=== PATIENT | male | born 1960 | race Caucasian/White ===

== ENCOUNTER 2017-09-17 19:24 | Inpatient (IN) | payer OTHER ==
[~2017-09-17] VITALS: Ht 177.8 cm; Wt 129.4 kg
[2017-09-17] MEDS ORDERED: ALBUTEROL SULF 2.5 MG/0.5ML(0.5%) NEB SOLN HHN STA (19:49)
[2017-09-17] MEDS ORDERED: IPRATROPIUM BROM 0.5 MG/2.5ML INH SOL NEB ONE (20:00)
[2017-09-17] MEDS ORDERED: FUROSEMIDE 20 MG/2 ML VIAL IV ONE (20:00)
[2017-09-17] MEDS ORDERED: methylPREDNISolone SOD SUCC 125 MG/2 ML VL IV ONE (20:00)
[2017-09-17 20:21] LABS: Hematocrit 42.8 % (41.0-53.0); Hemoglobin 14.3 g/dL (13.5-17.5); Mean Corpuscular Hemoglobin 32.4 pg (28.0-32.0); Mean Corpuscular Hgb Conc. 33.5 g/dL (32.0-36.0); Mean Corpuscular Volume 96.8 fL (80.0-100.0); Platelet Count (auto) 233 10^3/uL (140-450); Red Blood Cells 4.43 10^6/uL (4.5-5.90); Red Cell Distribution Width 17.1 % (11.8-14.3); White Blood Cell 5.7 10^3/uL (4.4-10.8)
[2017-09-17 20:31] LABS: Band Neutrophils % (manual) 0
[2017-09-17 20:32] LABS: Basophils % (manual) 0 (0.0-2.0); Blast Cells 0; Metamyelocytes % 0; Myelocytes % 0; Promyelocytes % 0; Reactive Lymphocytes 0
[2017-09-17 20:36] LABS: INR 1.44 (0.9-1.15); Prothrombin Time 15.7 sec (9.37-12.3)
[2017-09-17 20:47] LABS: BUN/Creatinine Ratio 26.6; Bilirubin, Total 0.7 mg/dL (0.2-1.0); Calcium 8.1 mg/dL (8.5-10.1); Potassium 5.1 mmol/L (3.5-5.1); Total Protein 8.3 g/dL (6.4-8.2)
[2017-09-17 21:00] LABS: Urine Bacteria NONE SEEN /hpf (None Seen); Urine Blood Negative /uL (Negative); Urine Mucus FEW (None Seen); Urine Specific Gravity 1.012 (1.001-1.035); Urine WBC <1 /hpf (0 - 3)
[2017-09-17 21:05] LABS: Eosinophils % (manual) 1 (0-7); Lymphocytes % (manual) 33 (10.0-50.0); Monocytes % (manual) 11 (0-12)
[2017-09-17 22:00] VITALS: BP 153/61
[2017-09-17] MEDS ORDERED: SPIR25TA89 PO (23:27)
[2017-09-17] MEDS ORDERED: AML5T PO (23:27)
[2017-09-17] MEDS ORDERED: GABA300C10 PO (23:27)
[2017-09-17] MEDS ORDERED: CARV25TA55 PO (23:27)
[2017-09-17] MEDS ORDERED: PRAV20TA3 PO (23:27)
[2017-09-17] MEDS ORDERED: ASPI81CH43 PO (23:27)
[2017-09-17] MEDS ORDERED: LISI-646 PO (23:27)
[2017-09-17] MEDS ORDERED: AMLO5TAB2 PO (23:27)
[2017-09-17] MEDS ORDERED: TAMS0.4C36 PO (23:27)
[2017-09-17] MEDS ORDERED: PERCOT PO (23:27)
[2017-09-17] MEDS ORDERED: BACL10TA PO (23:27)
[2017-09-17] MEDS ORDERED: FURO40TA4 PO (23:27)
[2017-09-17] MEDS ORDERED: METF-370 PO (23:27)
[2017-09-18] VITALS (30 sets, daily range): BP systolic 88–162; BP diastolic 44–82
[2017-09-18] MEDS ORDERED: ONDANSETRON HCL 4 MG/2 ML VIAL IV PRN (01:30)
[2017-09-18] MEDS ORDERED: ACETAMINOPHEN 325 MG TAB PO PRN (01:30)
[2017-09-18] MEDS ORDERED: MORPHINE SULFATE 4 MG/ML SYR/VIAL IV PRN (01:30)
[2017-09-18] MEDS ORDERED: DEXTROSE (50%) 50ML SYRG IV PRN (01:30)
[2017-09-18] MEDS ORDERED: DOCUSATE SOD 100 MG CAP PO PRN (01:30)
[2017-09-18] MEDS ORDERED: TEMAZEPAM 15 MG CAP PO PRN (01:30)
[2017-09-18] MEDS ORDERED: NITROGLYCERIN 0.4 MG SL TAB SL PRN (01:30)
[2017-09-18] MEDS ORDERED: IOHEXOL 350 MG/ML 100ML IJ ONE (01:46)
[2017-09-18] MEDS ORDERED: SUCCINYLCHOLINE CHLORIDE 20 MG/ML 10ML VIAL IV ONE (04:54)
[2017-09-18] MEDS ORDERED: ETOMIDATE (2MG/ML) 20ML VIAL IV ONE (04:54)
[2017-09-18] MEDS ORDERED: MIDAZOLAM DRIP 50 mg/50mL 50 ML IV ONE (05:23)
[2017-09-18] MEDS: MIDAZOLAM DRIP 50 mg/50mL 50 ML IV SCH ×2 (05:56→20:03)
[2017-09-18] MEDS: FUROSEMIDE 40 MG TAB PO SCH ×2 (06:00→17:54)
[2017-09-18] MEDS ORDERED: FUROSEMIDE 40 MG/4 ML VIAL ONE (06:02)
[2017-09-18] MEDS ORDERED: PROPOFOL 100 ML IV ONE (06:49)
[2017-09-18] MEDS: PROPOFOL 100 ML IV SCH ×3 (07:13→17:36)
[2017-09-18] MEDS: LEVOFLOXACIN 750MG 150 ML IV SCH ×2 (07:21→10:00)
[2017-09-18] MEDS: InsuLIN REG 1unit/0.01ml Soln (100units/ml) SC SCH ×3 (08:40→17:54)
[2017-09-18] MEDS: ACCU-CHEK COMFORT CURVE STRIP VI SCH ×3 (08:40→17:54)
[2017-09-18] MEDS: amLODIPine BESYLATE 5 MG TAB PO SCH ×2 (11:00→21:33)
[2017-09-18] MEDS: FAMOTIDINE 20 MG TAB PO SCH ×2 (11:00→21:46)
[2017-09-18] MEDS: CARVEDILOL 12.5 MG TAB PO SCH (11:00)
[2017-09-18] MEDS: SPIRONOLACTONE 25 MG TAB PO SCH (11:00)
[2017-09-18] MEDS: ENOXAPARIN SOD 40 MG/0.4 ML SYRINGE SC SCH (11:00)
[2017-09-18] MEDS: ASPirin 81 mg TAB PO SCH (11:00)
[2017-09-18] MEDS: LISINOPRIL 20 MG TAB PO SCH (11:00)
[2017-09-18] MEDS: IPRATROPIUM BROM 0.5 MG/2.5ML INH SOL NEB PRN ×3 (14:02→22:10)
[2017-09-18] MEDS: ALBUTEROL SULF 2.5 MG/0.5ML(0.5%) NEB SOLN NEB PRN ×3 (14:02→22:10)
[2017-09-18] MEDS: PRAVASTATIN SODIUM 20 MG TAB PO SCH (21:47)
[2017-09-19] VITALS (48 sets, daily range): BP systolic 84–137; BP diastolic 39–70
[2017-09-19] MEDS: ACCU-CHEK COMFORT CURVE STRIP VI SCH ×5 (00:13→23:41)
[2017-09-19] MEDS: ALBUTEROL SULF 2.5 MG/0.5ML(0.5%) NEB SOLN NEB PRN ×3 (02:04→10:35)
[2017-09-19] MEDS: IPRATROPIUM BROM 0.5 MG/2.5ML INH SOL NEB PRN ×3 (02:04→10:35)
[2017-09-19 05:50] LABS: Basophils # (auto) 0 uL; Basophils % (auto) 0.2 % (0.0-2.0); Eosinophils # (auto) 0 uL; Hematocrit 41.5 % (41.0-53.0); Hemoglobin 13.7 g/dL (13.5-17.5); Lymphocytes % (auto) 11.1 % (10.0-50.0); Mean Corpuscular Hemoglobin 31.7 pg (28.0-32.0); Mean Corpuscular Hgb Conc. 32.9 g/dL (32.0-36.0); Mean Corpuscular Volume 96.2 fL (80.0-100.0); Monocytes # (auto) 0.8 uL; Neutrophils # (auto) 7.4 uL; Neutrophils % (auto) 79.7 % (37.0-80.0); Platelet Count (auto) 204 10^3/uL (140-450); Red Blood Cells 4.31 10^6/uL (4.5-5.90); Red Cell Distribution Width 17.1 % (11.8-14.3); White Blood Cell 9.3 10^3/uL (4.4-10.8)
[2017-09-19 06:00] LABS: Albumin 2.7 g/dL (3.4-5.0); Calcium 8.3 mg/dL (8.5-10.1); Potassium 4.8 mmol/L (3.5-5.1)
[2017-09-19] MEDS: InsuLIN REG 1unit/0.01ml Soln (100units/ml) SC SCH ×5 (06:00→23:41)
[2017-09-19 06:03] LABS: Bilirubin, Total 0.9 mg/dL (0.2-1.0); Total Protein 7.4 g/dL (6.4-8.2)
[2017-09-19] MEDS: MIDAZOLAM DRIP 50 mg/50mL 50 ML IV SCH ×4 (06:03→18:31)
[2017-09-19] MEDS: FUROSEMIDE 40 MG TAB PO SCH (06:06)
[2017-09-19] MEDS: ACETAMINOPHEN 650 mg PER 20 mL UD PO PRN ×2 (07:30→17:52)
[2017-09-19] MEDS: CARVEDILOL 12.5 MG TAB PO SCH (09:48)
[2017-09-19] MEDS: ASPirin 81 mg TAB PO SCH (09:48)
[2017-09-19] MEDS: LEVOFLOXACIN 750MG 150 ML IV SCH (09:48)
[2017-09-19] MEDS: SPIRONOLACTONE 25 MG TAB PO SCH (09:48)
[2017-09-19] MEDS: LISINOPRIL 20 MG TAB PO SCH (09:49)
[2017-09-19] MEDS: FAMOTIDINE 20 MG TAB PO SCH ×2 (09:49→22:07)
[2017-09-19] MEDS: ENOXAPARIN SOD 40 MG/0.4 ML SYRINGE SC SCH (09:49)
[2017-09-19] MEDS: amLODIPine BESYLATE 5 MG TAB PO SCH (09:49)
[2017-09-19] MEDS ORDERED: Diabetisource AC 1 Liter GT SCH (11:00)
[2017-09-19] MEDS: Diabetisource AC 1 Liter GT SCH (14:52)
[2017-09-19] MEDS ORDERED: PIPERACILLIN-TAZOB 3.375GM 50 ML IV SCH (15:00)
[2017-09-19] MEDS ORDERED: AZITHROMYCIN 500MG/ 250ML 250 ML IV SCH (15:00)
[2017-09-19] MEDS: PIPERACILLIN-TAZOB 3.375GM 50 ML IV SCH ×2 (16:35→20:28)
[2017-09-19] MEDS: FUROSEMIDE 40 MG/4 ML VIAL IV SCH (17:52)
[2017-09-19] MEDS ORDERED: IBUPROFEN 100MG/5ML ORAL SUSP 100 MG/5 ML UD GT PRN (18:00)
[2017-09-19] MEDS ORDERED: IBUPROFEN 100MG/5ML ORAL SUSP 100 MG/5 ML UD ONE (18:01)
[2017-09-19] MEDS: ALBUTEROL SULF 2.5 MG/0.5ML(0.5%) NEB SOLN NEB SCH ×2 (18:11→22:27)
[2017-09-19] MEDS: IPRATROPIUM BROM 0.5 MG/2.5ML INH SOL NEB SCH ×2 (18:11→22:27)
[2017-09-19] MEDS: PRAVASTATIN SODIUM 20 MG TAB PO SCH (22:06)
[2017-09-20] VITALS (48 sets, daily range): BP systolic 90–117; BP diastolic 40–73
[2017-09-20] MEDS: ALBUTEROL SULF 2.5 MG/0.5ML(0.5%) NEB SOLN NEB SCH ×6 (02:25→22:44)
[2017-09-20] MEDS: IPRATROPIUM BROM 0.5 MG/2.5ML INH SOL NEB SCH ×6 (02:25→22:44)
[2017-09-20] MEDS: PIPERACILLIN-TAZOB 3.375GM 50 ML IV SCH ×4 (03:00→22:23)
[2017-09-20] MEDS: InsuLIN REG 1unit/0.01ml Soln (100units/ml) SC SCH ×4 (06:00→23:52)
[2017-09-20] MEDS: ACCU-CHEK COMFORT CURVE STRIP VI SCH ×4 (06:00→23:52)
[2017-09-20] MEDS: FUROSEMIDE 40 MG/4 ML VIAL IV SCH ×2 (06:19→18:00)
[2017-09-20] MEDS: SODIUM CHLORIDE 0.9% 1,000 ML IV SCH (06:27)
[2017-09-20] MEDS: PROPOFOL 100 ML IV SCH (09:30)
[2017-09-20] MEDS: CARVEDILOL 12.5 MG TAB PO SCH ×2 (10:00→22:00)
[2017-09-20 10:03] LABS: Basophils # (auto) 0 uL; Basophils % (auto) 0.3 % (0.0-2.0); Eosinophils # (auto) 0 uL; Eosinophils % (auto) 0.2 % (0.0-7.0); Hematocrit 45.7 % (41.0-53.0); Hemoglobin 14.9 g/dL (13.5-17.5); Lymphocytes # (auto) 0.7 uL; Lymphocytes % (auto) 11.3 % (10.0-50.0); Mean Corpuscular Hemoglobin 31.3 pg (28.0-32.0); Mean Corpuscular Hgb Conc. 32.7 g/dL (32.0-36.0); Mean Corpuscular Volume 95.8 fL (80.0-100.0); Monocytes # (auto) 0.8 uL; Monocytes % (auto) 13.5 % (0.0-12.0); Neutrophils # (auto) 4.5 uL; Neutrophils % (auto) 74.7 % (37.0-80.0); Nucleated Red Blood Cells % 0.2 %; Platelet Count (auto) 156 10^3/uL (140-450); Red Blood Cells 4.77 10^6/uL (4.5-5.90); Red Cell Distribution Width 17.1 % (11.8-14.3); White Blood Cell 6.1 10^3/uL (4.4-10.8)
[2017-09-20] MEDS: LEVOFLOXACIN 750MG 150 ML IV SCH (10:05)
[2017-09-20] MEDS: SPIRONOLACTONE 25 MG TAB PO SCH (10:11)
[2017-09-20] MEDS: ENOXAPARIN SOD 40 MG/0.4 ML SYRINGE SC SCH (10:12)
[2017-09-20] MEDS: ASPirin 81 mg TAB PO SCH (10:12)
[2017-09-20] MEDS: FAMOTIDINE 20 MG TAB PO SCH ×2 (10:12→22:23)
[2017-09-20 11:56] LABS: BUN/Creatinine Ratio 20.5; Calcium 8.2 mg/dL (8.5-10.1); Magnesium 2.1 mg/dL (1.6-2.6); Potassium 4.1 mmol/L (3.5-5.1)
[2017-09-20] MEDS ORDERED: VANCOMYCIN 1GM/250ML 250 ML IV ONE (14:30)
[2017-09-20] MEDS ORDERED: VANCOMYCIN PER PHARMACY 0 MG IV SCH (14:30)
[2017-09-20] MEDS: MIDAZOLAM DRIP 50 mg/50mL 50 ML IV SCH (19:58)
[2017-09-20] MEDS: VANCOMYCIN 1,500 MG in D5W 5% 250 ML IV SCH (20:00)
[2017-09-20] MEDS: PRAVASTATIN SODIUM 20 MG TAB PO SCH (22:24)
[2017-09-21] VITALS (106 sets, daily range): BP systolic 84–123; BP diastolic 33–68
[2017-09-21] MEDS: MIDAZOLAM DRIP 50 mg/50mL 50 ML IV SCH ×4 (01:14→14:00)
[2017-09-21] MEDS: VANCOMYCIN 1,500 MG in D5W 5% 250 ML IV SCH ×4 (01:14→23:17)
[2017-09-21] MEDS: PROPOFOL 100 ML IV SCH ×2 (01:14→09:22)
[2017-09-21] MEDS: IPRATROPIUM BROM 0.5 MG/2.5ML INH SOL NEB SCH ×6 (02:50→22:09)
[2017-09-21] MEDS: ALBUTEROL SULF 2.5 MG/0.5ML(0.5%) NEB SOLN NEB SCH ×6 (02:50→22:09)
[2017-09-21] MEDS: PIPERACILLIN-TAZOB 3.375GM 50 ML IV SCH ×4 (03:36→20:57)
[2017-09-21 03:47] LABS: Basophils # (auto) 0 uL; Basophils % (auto) 0.4 % (0.0-2.0); Eosinophils # (auto) 0 uL; Eosinophils % (auto) 0.5 % (0.0-7.0); Hematocrit 44.7 % (41.0-53.0); Lymphocytes # (auto) 1.2 uL; Lymphocytes % (auto) 17.5 % (10.0-50.0); Mean Corpuscular Hemoglobin 31.7 pg (28.0-32.0); Mean Corpuscular Hgb Conc. 33.5 g/dL (32.0-36.0); Mean Corpuscular Volume 94.6 fL (80.0-100.0); Monocytes % (auto) 15.1 % (0.0-12.0); Neutrophils # (auto) 4.6 uL; Neutrophils % (auto) 66.5 % (37.0-80.0); Nucleated Red Blood Cells % 0.1 %; Platelet Count (auto) 149 10^3/uL (140-450); Red Blood Cells 4.72 10^6/uL (4.5-5.90); White Blood Cell 6.9 10^3/uL (4.4-10.8)
[2017-09-21 04:05] LABS: Albumin 2.7 g/dL (3.4-5.0); BUN/Creatinine Ratio 16.7; Calcium 8.3 mg/dL (8.5-10.1); Potassium 3.9 mmol/L (3.5-5.1)
[2017-09-21 04:08] LABS: Bilirubin, Total 1.5 mg/dL (0.2-1.0); Total Protein 7.6 g/dL (6.4-8.2)
[2017-09-21] MEDS: InsuLIN REG 1unit/0.01ml Soln (100units/ml) SC SCH ×3 (06:00→18:30)
[2017-09-21] MEDS: FUROSEMIDE 40 MG/4 ML VIAL IV SCH (06:24)
[2017-09-21] MEDS: ACCU-CHEK COMFORT CURVE STRIP VI SCH ×3 (06:25→18:15)
[2017-09-21] MEDS: SODIUM CHLORIDE 0.9% 1,000 ML IV SCH (06:36)
[2017-09-21] MEDS: CARVEDILOL 12.5 MG TAB PO SCH ×2 (10:37→21:54)
[2017-09-21] MEDS: SPIRONOLACTONE 25 MG TAB PO SCH (10:38)
[2017-09-21] MEDS: LEVOFLOXACIN 750MG 150 ML IV SCH (10:39)
[2017-09-21] MEDS: FAMOTIDINE 20 MG TAB PO SCH ×2 (10:39→21:59)
[2017-09-21] MEDS: ASPirin 81 mg TAB PO SCH (12:35)
[2017-09-21] MEDS: ENOXAPARIN SOD 40 MG/0.4 ML SYRINGE SC SCH (12:35)
[2017-09-21] MEDS: Diabetisource AC 1 Liter GT SCH (14:52)
[2017-09-21] MEDS: PRAVASTATIN SODIUM 20 MG TAB PO SCH (21:59)
[2017-09-22] VITALS (81 sets, daily range): BP systolic 85–130; BP diastolic 37–66
[2017-09-22] MEDS: ACCU-CHEK COMFORT CURVE STRIP VI SCH ×5 (00:15→23:57)
[2017-09-22] MEDS: MIDAZOLAM DRIP 50 mg/50mL 50 ML IV SCH (00:19)
[2017-09-22] MEDS: ALBUTEROL SULF 2.5 MG/0.5ML(0.5%) NEB SOLN NEB SCH ×6 (02:28→22:09)
[2017-09-22] MEDS: IPRATROPIUM BROM 0.5 MG/2.5ML INH SOL NEB SCH ×6 (02:28→22:08)
[2017-09-22 03:45] LABS: Basophils # (auto) 0 uL; Basophils % (auto) 0.4 % (0.0-2.0); Eosinophils # (auto) 0.1 uL; Eosinophils % (auto) 1.8 % (0.0-7.0); Hematocrit 47.5 % (41.0-53.0); Hemoglobin 15.8 g/dL (13.5-17.5); Lymphocytes # (auto) 1.6 uL; Mean Corpuscular Hemoglobin 31.6 pg (28.0-32.0); Mean Corpuscular Hgb Conc. 33.2 g/dL (32.0-36.0); Monocytes # (auto) 1.2 uL; Monocytes % (auto) 16.1 % (0.0-12.0); Neutrophils # (auto) 4.5 uL; Neutrophils % (auto) 60.7 % (37.0-80.0); Platelet Count (auto) 161 10^3/uL (140-450); Red Cell Distribution Width 16.8 % (11.8-14.3); White Blood Cell 7.4 10^3/uL (4.4-10.8)
[2017-09-22] MEDS: PIPERACILLIN-TAZOB 3.375GM 50 ML IV SCH ×4 (04:00→20:41)
[2017-09-22 04:03] LABS: Albumin 2.8 g/dL (3.4-5.0); Calcium 8.8 mg/dL (8.5-10.1); Potassium 3.8 mmol/L (3.5-5.1)
[2017-09-22 04:05] LABS: BUN/Creatinine Ratio 19.5
[2017-09-22 04:10] LABS: Bilirubin, Total 1.8 mg/dL (0.2-1.0); Total Protein 8.3 g/dL (6.4-8.2)
[2017-09-22] MEDS: FUROSEMIDE 40 MG/4 ML VIAL IV SCH ×2 (06:00→18:00)
[2017-09-22] MEDS: InsuLIN REG 1unit/0.01ml Soln (100units/ml) SC SCH ×4 (06:00→18:31)
[2017-09-22] MEDS: VANCOMYCIN 1,500 MG in D5W 5% 250 ML IV SCH (07:23)
[2017-09-22] MEDS: CARVEDILOL 12.5 MG TAB PO SCH ×2 (10:00→21:46)
[2017-09-22] MEDS: ENOXAPARIN SOD 40 MG/0.4 ML SYRINGE SC SCH (10:34)
[2017-09-22] MEDS: ASPirin 81 mg TAB PO SCH (10:34)
[2017-09-22] MEDS: SPIRONOLACTONE 25 MG TAB PO SCH (10:34)
[2017-09-22] MEDS: LEVOFLOXACIN 750MG 150 ML IV SCH (10:34)
[2017-09-22] MEDS: FAMOTIDINE 20 MG TAB PO SCH ×2 (10:34→21:46)
[2017-09-22] MEDS: Diabetisource AC 1 Liter GT SCH (16:50)
[2017-09-22] MEDS: VANCOMYCIN 1GM/250ML 250 ML IV SCH ×2 (16:56→23:57)
[2017-09-22] MEDS: PRAVASTATIN SODIUM 20 MG TAB PO SCH (21:46)
[2017-09-23] VITALS (104 sets, daily range): BP systolic 78–136; BP diastolic 33–70
[2017-09-23] MEDS: InsuLIN REG 1unit/0.01ml Soln (100units/ml) SC SCH ×5 (00:13→23:40)
[2017-09-23] MEDS: MIDAZOLAM DRIP 50 mg/50mL 50 ML IV SCH ×2 (01:08→14:30)
[2017-09-23] MEDS: ALBUTEROL SULF 2.5 MG/0.5ML(0.5%) NEB SOLN NEB SCH ×6 (02:07→22:15)
[2017-09-23] MEDS: IPRATROPIUM BROM 0.5 MG/2.5ML INH SOL NEB SCH ×6 (02:07→22:15)
[2017-09-23] MEDS: PIPERACILLIN-TAZOB 3.375GM 50 ML IV SCH ×4 (03:11→20:33)
[2017-09-23 04:24] LABS: Basophils # (auto) 0.1 uL; Basophils % (auto) 0.6 % (0.0-2.0); Eosinophils # (auto) 0.3 uL; Eosinophils % (auto) 2.9 % (0.0-7.0); Hematocrit 47.5 % (41.0-53.0); Hemoglobin 15.6 g/dL (13.5-17.5); Lymphocytes # (auto) 1.7 uL; Lymphocytes % (auto) 16.7 % (10.0-50.0); Mean Corpuscular Hemoglobin 31.4 pg (28.0-32.0); Mean Corpuscular Hgb Conc. 32.9 g/dL (32.0-36.0); Mean Corpuscular Volume 95.5 fL (80.0-100.0); Monocytes # (auto) 1.4 uL; Neutrophils # (auto) 6.5 uL; Neutrophils % (auto) 65.8 % (37.0-80.0); Platelet Count (auto) 196 10^3/uL (140-450); Red Blood Cells 4.97 10^6/uL (4.5-5.90); Red Cell Distribution Width 17.1 % (11.8-14.3); White Blood Cell 9.9 10^3/uL (4.4-10.8)
[2017-09-23 04:41] LABS: Albumin 2.6 g/dL (3.4-5.0); Bilirubin, Total 1.5 mg/dL (0.2-1.0); Calcium 8.6 mg/dL (8.5-10.1); Potassium 3.7 mmol/L (3.5-5.1); Total Protein 8.3 g/dL (6.4-8.2)
[2017-09-23] MEDS: FUROSEMIDE 40 MG/4 ML VIAL IV SCH ×2 (05:38→17:55)
[2017-09-23] MEDS: ACCU-CHEK COMFORT CURVE STRIP VI SCH ×5 (05:39→23:27)
[2017-09-23] MEDS: PROPOFOL 100 ML IV SCH (06:38)
[2017-09-23] MEDS: VANCOMYCIN 1GM/250ML 250 ML IV SCH ×2 (09:00→23:28)
[2017-09-23] MEDS: ENOXAPARIN SOD 40 MG/0.4 ML SYRINGE SC SCH (10:00)
[2017-09-23] MEDS: CARVEDILOL 12.5 MG TAB PO SCH ×2 (10:00→21:43)
[2017-09-23] MEDS: SPIRONOLACTONE 25 MG TAB PO SCH (10:00)
[2017-09-23] MEDS: LEVOFLOXACIN 750MG 150 ML IV SCH (10:00)
[2017-09-23] MEDS: FAMOTIDINE 20 MG TAB PO SCH ×2 (10:00→21:43)
[2017-09-23] MEDS: ASPirin 81 mg TAB PO SCH (10:00)
[2017-09-23] MEDS ORDERED: InsuLIN REG 1unit/0.01ml Soln (100units/ml) ONE (12:00)
[2017-09-23] MEDS: PRAVASTATIN SODIUM 20 MG TAB PO SCH (21:43)
[2017-09-24] VITALS (107 sets, daily range): BP systolic 80–127; BP diastolic 27–76
[2017-09-24] MEDS: Diabetisource AC 1 Liter GT SCH (00:16)
[2017-09-24] MEDS: ALBUTEROL SULF 2.5 MG/0.5ML(0.5%) NEB SOLN NEB SCH ×7 (02:00→22:33)
[2017-09-24] MEDS: IPRATROPIUM BROM 0.5 MG/2.5ML INH SOL NEB SCH ×6 (02:19→22:33)
[2017-09-24] MEDS: PIPERACILLIN-TAZOB 3.375GM 50 ML IV SCH ×4 (03:00→22:00)
[2017-09-24 04:55] LABS: Basophils # (auto) 0.1 uL; Basophils % (auto) 0.6 % (0.0-2.0); Eosinophils # (auto) 0.4 uL; Eosinophils % (auto) 4.2 % (0.0-7.0); Hematocrit 45.7 % (41.0-53.0); Hemoglobin 15.5 g/dL (13.5-17.5); Lymphocytes # (auto) 2.3 uL; Lymphocytes % (auto) 22.6 % (10.0-50.0); Mean Corpuscular Hemoglobin 32.2 pg (28.0-32.0); Mean Corpuscular Volume 94.6 fL (80.0-100.0); Monocytes # (auto) 1.5 uL; Monocytes % (auto) 14.6 % (0.0-12.0); Neutrophils # (auto) 5.8 uL; Nucleated Red Blood Cells % 0.1 %; Platelet Count (auto) 233 10^3/uL (140-450); Red Blood Cells 4.83 10^6/uL (4.5-5.90); Red Cell Distribution Width 16.7 % (11.8-14.3)
[2017-09-24] MEDS: MIDAZOLAM DRIP 50 mg/50mL 50 ML IV SCH ×2 (04:59→15:18)
[2017-09-24 05:50] LABS: Albumin 2.6 g/dL (3.4-5.0); BUN/Creatinine Ratio 24.3; Bilirubin, Total 1.6 mg/dL (0.2-1.0); Calcium 8.7 mg/dL (8.5-10.1); Potassium 3.7 mmol/L (3.5-5.1); Total Protein 8.4 g/dL (6.4-8.2)
[2017-09-24] MEDS: FUROSEMIDE 40 MG/4 ML VIAL IV SCH ×2 (05:56→18:17)
[2017-09-24] MEDS: InsuLIN REG 1unit/0.01ml Soln (100units/ml) SC SCH ×3 (05:57→18:30)
[2017-09-24] MEDS: PROPOFOL 100 ML IV SCH (05:57)
[2017-09-24] MEDS: ACCU-CHEK COMFORT CURVE STRIP VI SCH ×3 (05:58→18:25)
[2017-09-24] MEDS: CARVEDILOL 12.5 MG TAB PO SCH ×2 (10:00→21:46)
[2017-09-24] MEDS: FAMOTIDINE 20 MG TAB PO SCH ×2 (10:19→21:47)
[2017-09-24] MEDS: LEVOFLOXACIN 750MG 150 ML IV SCH (10:19)
[2017-09-24] MEDS: ASPirin 81 mg TAB PO SCH (10:19)
[2017-09-24] MEDS: SPIRONOLACTONE 25 MG TAB PO SCH (10:19)
[2017-09-24] MEDS: ENOXAPARIN SOD 40 MG/0.4 ML SYRINGE SC SCH (10:19)
[2017-09-24] MEDS: VANCOMYCIN 1GM/250ML 250 ML IV SCH ×2 (11:00→21:15)
[2017-09-24] MEDS: HYDROcodone-ACET 5/325MG TAB PO PRN (21:15)
[2017-09-24] MEDS: PRAVASTATIN SODIUM 20 MG TAB PO SCH (21:47)
[2017-09-25] VITALS (59 sets, daily range): BP systolic 61–134; BP diastolic 23–79
[2017-09-25] MEDS: ALBUTEROL SULF 2.5 MG/0.5ML(0.5%) NEB SOLN NEB SCH ×6 (02:17→22:10)
[2017-09-25] MEDS: IPRATROPIUM BROM 0.5 MG/2.5ML INH SOL NEB SCH ×6 (02:17→22:10)
[2017-09-25] MEDS: PIPERACILLIN-TAZOB 3.375GM 50 ML IV SCH ×4 (03:00→21:01)
[2017-09-25] MEDS: VANCOMYCIN 1GM/250ML 250 ML IV SCH (06:00)
[2017-09-25 06:20] LABS: Basophils # (auto) 0.2 uL; Basophils % (auto) 2.3 % (0.0-2.0); Eosinophils # (auto) 0.5 uL; Eosinophils % (auto) 5.7 % (0.0-7.0); Hematocrit 46.3 % (41.0-53.0); Hemoglobin 15.6 g/dL (13.5-17.5); Lymphocytes # (auto) 1.8 uL; Lymphocytes % (auto) 22.6 % (10.0-50.0); Mean Corpuscular Hgb Conc. 33.6 g/dL (32.0-36.0); Mean Corpuscular Volume 95.3 fL (80.0-100.0); Monocytes # (auto) 1.4 uL; Monocytes % (auto) 17.8 % (0.0-12.0); Neutrophils # (auto) 4.2 uL; Neutrophils % (auto) 51.6 % (37.0-80.0); Nucleated Red Blood Cells % 0.3 %; Platelet Count (auto) 262 10^3/uL (140-450); Red Blood Cells 4.86 10^6/uL (4.5-5.90); Red Cell Distribution Width 16.7 % (11.8-14.3); White Blood Cell 8.1 10^3/uL (4.4-10.8)
[2017-09-25 06:36] LABS: Albumin 2.6 g/dL (3.4-5.0); BUN/Creatinine Ratio 25.7; Calcium 8.9 mg/dL (8.5-10.1); Potassium 3.8 mmol/L (3.5-5.1)
[2017-09-25 06:38] LABS: Bilirubin, Total 1.4 mg/dL (0.2-1.0); Total Protein 8.4 g/dL (6.4-8.2)
[2017-09-25] MEDS: InsuLIN REG 1unit/0.01ml Soln (100units/ml) SC SCH ×4 (06:40→18:00)
[2017-09-25] MEDS: ACCU-CHEK COMFORT CURVE STRIP VI SCH ×4 (06:40→18:41)
[2017-09-25] MEDS: FUROSEMIDE 40 MG/4 ML VIAL IV SCH ×2 (06:40→18:15)
[2017-09-25] MEDS: PROPOFOL 100 ML IV SCH ×2 (07:03→22:05)
[2017-09-25] MEDS: MIDAZOLAM DRIP 50 mg/50mL 50 ML IV SCH (08:47)
[2017-09-25] MEDS: LEVOFLOXACIN 750MG 150 ML IV SCH (09:55)
[2017-09-25] MEDS: ASPirin 81 mg TAB PO SCH (09:55)
[2017-09-25] MEDS: SPIRONOLACTONE 25 MG TAB PO SCH (09:55)
[2017-09-25] MEDS: ENOXAPARIN SOD 40 MG/0.4 ML SYRINGE SC SCH (09:55)
[2017-09-25] MEDS: CARVEDILOL 12.5 MG TAB PO SCH ×2 (09:55→22:30)
[2017-09-25] MEDS: FAMOTIDINE 20 MG TAB PO SCH ×2 (09:55→22:03)
[2017-09-25] MEDS: LINEZOLID 600MG/300ML 300 ML IV SCH ×2 (11:49→22:05)
[2017-09-25] MEDS: PRAVASTATIN SODIUM 20 MG TAB PO SCH (22:04)
[2017-09-26] VITALS (58 sets, daily range): BP systolic 92–147; BP diastolic 35–92
[2017-09-26] MEDS: PROPOFOL 100 ML IV SCH ×3 (00:08→06:00)
[2017-09-26] MEDS: IPRATROPIUM BROM 0.5 MG/2.5ML INH SOL NEB SCH ×6 (02:28→22:19)
[2017-09-26] MEDS: ALBUTEROL SULF 2.5 MG/0.5ML(0.5%) NEB SOLN NEB SCH ×6 (02:28→22:19)
[2017-09-26] MEDS: PIPERACILLIN-TAZOB 3.375GM 50 ML IV SCH ×4 (03:03→21:00)
[2017-09-26] MEDS: MIDAZOLAM DRIP 50 mg/50mL 50 ML IV SCH (05:56)
[2017-09-26] MEDS: InsuLIN REG 1unit/0.01ml Soln (100units/ml) SC SCH ×4 (06:00→18:00)
[2017-09-26 06:11] LABS: Calcium 9.3 mg/dL (8.5-10.1); Potassium 3.7 mmol/L (3.5-5.1)
[2017-09-26 06:14] LABS: BUN/Creatinine Ratio 24.1
[2017-09-26] MEDS: FUROSEMIDE 40 MG/4 ML VIAL IV SCH ×2 (06:14→18:11)
[2017-09-26] MEDS: ACCU-CHEK COMFORT CURVE STRIP VI SCH ×4 (06:14→18:10)
[2017-09-26] MEDS: LEVOFLOXACIN 750MG 150 ML IV SCH (09:57)
[2017-09-26] MEDS: LINEZOLID 600MG/300ML 300 ML IV SCH ×2 (09:57→22:00)
[2017-09-26] MEDS: ASPirin 81 mg TAB PO SCH (09:58)
[2017-09-26] MEDS: CARVEDILOL 12.5 MG TAB PO SCH ×2 (09:58→23:02)
[2017-09-26] MEDS: FAMOTIDINE 20 MG TAB PO SCH ×2 (09:58→23:03)
[2017-09-26] MEDS: SPIRONOLACTONE 25 MG TAB PO SCH (09:58)
[2017-09-26] MEDS: ENOXAPARIN SOD 40 MG/0.4 ML SYRINGE SC SCH (09:58)
[2017-09-26] MEDS ORDERED: MIDAZOLAM HCL 1MG/1ML-2 ML VIAL IV PRN (12:00)
[2017-09-26] MEDS: PRAVASTATIN SODIUM 20 MG TAB PO SCH (23:03)
[2017-09-27] VITALS (25 sets, daily range): BP systolic 101–143; BP diastolic 48–71
[2017-09-27] MEDS: ACCU-CHEK COMFORT CURVE STRIP VI SCH ×4 (01:00→18:00)
[2017-09-27] MEDS: IPRATROPIUM BROM 0.5 MG/2.5ML INH SOL NEB SCH ×6 (02:22→22:47)
[2017-09-27] MEDS: ALBUTEROL SULF 2.5 MG/0.5ML(0.5%) NEB SOLN NEB SCH ×6 (02:22→22:47)
[2017-09-27] MEDS: PIPERACILLIN-TAZOB 3.375GM 50 ML IV SCH ×4 (03:00→21:10)
[2017-09-27] MEDS: FUROSEMIDE 40 MG/4 ML VIAL IV SCH ×2 (06:00→18:43)
[2017-09-27] MEDS: InsuLIN REG 1unit/0.01ml Soln (100units/ml) SC SCH ×4 (06:00→18:00)
[2017-09-27 06:06] LABS: Hematocrit 47.6 % (41.0-53.0); Hemoglobin 15.8 g/dL (13.5-17.5); Mean Corpuscular Hemoglobin 31.4 pg (28.0-32.0); Mean Corpuscular Hgb Conc. 33.1 g/dL (32.0-36.0); Mean Corpuscular Volume 94.8 fL (80.0-100.0); Platelet Count (auto) 346 10^3/uL (140-450); Red Blood Cells 5.03 10^6/uL (4.5-5.90); Red Cell Distribution Width 16.3 % (11.8-14.3)
[2017-09-27 06:09] LABS: Band Neutrophils % (manual) 0
[2017-09-27 06:10] LABS: Basophils % (manual) 0 (0.0-2.0); Blast Cells 0; Metamyelocytes % 0; Myelocytes % 0; Promyelocytes % 0; Reactive Lymphocytes 0
[2017-09-27 06:16] LABS: Albumin 2.9 g/dL (3.4-5.0); BUN/Creatinine Ratio 22.9; Calcium 9.4 mg/dL (8.5-10.1); Potassium 3.5 mmol/L (3.5-5.1)
[2017-09-27 06:19] LABS: Bilirubin, Total 2.1 mg/dL (0.2-1.0); Total Protein 8.8 g/dL (6.4-8.2)
[2017-09-27] MEDS: HYDROcodone-ACET 5/325MG TAB PO PRN (06:48)
[2017-09-27 06:56] LABS: Eosinophils % (manual) 1 (0-7); Lymphocytes % (manual) 17 (10.0-50.0); Monocytes % (manual) 17 (0-12)
[2017-09-27] MEDS: ASPirin 81 mg TAB PO SCH (09:09)
[2017-09-27] MEDS: CARVEDILOL 12.5 MG TAB PO SCH ×2 (09:09→22:29)
[2017-09-27] MEDS: SPIRONOLACTONE 25 MG TAB PO SCH (09:09)
[2017-09-27] MEDS: LINEZOLID 600MG/300ML 300 ML IV SCH ×2 (09:10→22:29)
[2017-09-27] MEDS: LEVOFLOXACIN 750MG 150 ML IV SCH (09:10)
[2017-09-27] MEDS: FAMOTIDINE 20 MG TAB PO SCH ×2 (09:10→22:29)
[2017-09-27] MEDS: ENOXAPARIN SOD 40 MG/0.4 ML SYRINGE SC SCH (09:10)
[2017-09-27] MEDS: PRAVASTATIN SODIUM 20 MG TAB PO SCH (22:29)
[2017-09-28] VITALS (23 sets, daily range): BP systolic 97–154; BP diastolic 52–73
[2017-09-28] MEDS: ACCU-CHEK COMFORT CURVE STRIP VI SCH ×4 (00:07→17:31)
[2017-09-28] MEDS: InsuLIN REG 1unit/0.01ml Soln (100units/ml) SC SCH ×4 (00:07→17:31)
[2017-09-28] MEDS: ALBUTEROL SULF 2.5 MG/0.5ML(0.5%) NEB SOLN NEB SCH ×6 (02:10→22:00)
[2017-09-28] MEDS: IPRATROPIUM BROM 0.5 MG/2.5ML INH SOL NEB SCH ×6 (02:10→22:00)
[2017-09-28] MEDS: PIPERACILLIN-TAZOB 3.375GM 50 ML IV SCH ×4 (03:22→21:00)
[2017-09-28 04:15] LABS: Basophils # (auto) 0.1 uL; Basophils % (auto) 0.8 % (0.0-2.0); Eosinophils # (auto) 0.4 uL; Eosinophils % (auto) 3.8 % (0.0-7.0); Hemoglobin 16.3 g/dL (13.5-17.5); Lymphocytes # (auto) 1.9 uL; Lymphocytes % (auto) 19.3 % (10.0-50.0); Mean Corpuscular Hemoglobin 31.5 pg (28.0-32.0); Mean Corpuscular Hgb Conc. 33.3 g/dL (32.0-36.0); Mean Corpuscular Volume 94.5 fL (80.0-100.0); Monocytes # (auto) 1.7 uL; Neutrophils # (auto) 5.8 uL; Neutrophils % (auto) 59.1 % (37.0-80.0); Nucleated Red Blood Cells % 0.1 %; Platelet Count (auto) 376 10^3/uL (140-450); Red Blood Cells 5.19 10^6/uL (4.5-5.90); Red Cell Distribution Width 15.8 % (11.8-14.3); White Blood Cell 9.9 10^3/uL (4.4-10.8)
[2017-09-28 04:37] LABS: Albumin 2.9 g/dL (3.4-5.0); BUN/Creatinine Ratio 19.5; Bilirubin, Total 2.3 mg/dL (0.2-1.0); Calcium 9.4 mg/dL (8.5-10.1); Potassium 3.3 mmol/L (3.5-5.1); Total Protein 9.2 g/dL (6.4-8.2)
[2017-09-28] MEDS ORDERED: POTASSIUM CHL 20 Meq TABLET PO ONE ×2 (05:57→06:00)
[2017-09-28] MEDS: HYDROcodone-ACET 5/325MG TAB PO PRN (06:00)
[2017-09-28] MEDS ORDERED: NICOTINE 14 MG/24HR TOPICAL PATCH TD ONE ×2 (06:00)
[2017-09-28] MEDS: FUROSEMIDE 40 MG/4 ML VIAL IV SCH ×2 (06:16→18:04)
[2017-09-28] MEDS: SPIRONOLACTONE 25 MG TAB PO SCH (09:55)
[2017-09-28] MEDS: CARVEDILOL 12.5 MG TAB PO SCH ×3 (09:55→21:58)
[2017-09-28] MEDS: ASPirin 81 mg TAB PO SCH (09:55)
[2017-09-28] MEDS: LEVOFLOXACIN 750MG 150 ML IV SCH (09:55)
[2017-09-28] MEDS: FAMOTIDINE 20 MG TAB PO SCH ×2 (09:56→21:58)
[2017-09-28] MEDS: ENOXAPARIN SOD 40 MG/0.4 ML SYRINGE SC SCH (09:56)
[2017-09-28] MEDS: LINEZOLID 600MG/300ML 300 ML IV SCH ×2 (11:31→21:57)
[2017-09-28] MEDS: PRAVASTATIN SODIUM 20 MG TAB PO SCH (21:58)
[2017-09-29] VITALS (13 sets, daily range): BP systolic 109–143; BP diastolic 50–76
[2017-09-29] MEDS: IPRATROPIUM BROM 0.5 MG/2.5ML INH SOL NEB SCH ×6 (02:12→22:10)
[2017-09-29] MEDS: ALBUTEROL SULF 2.5 MG/0.5ML(0.5%) NEB SOLN NEB SCH ×6 (02:12→22:10)
[2017-09-29] MEDS: PIPERACILLIN-TAZOB 3.375GM 50 ML IV SCH ×4 (03:00→22:32)
[2017-09-29 03:37] LABS: Basophils # (auto) 0.1 uL; Basophils % (auto) 1.2 % (0.0-2.0); Eosinophils # (auto) 0.3 uL; Eosinophils % (auto) 2.4 % (0.0-7.0); Hematocrit 50.1 % (41.0-53.0); Hemoglobin 16.6 g/dL (13.5-17.5); Lymphocytes # (auto) 2.1 uL; Lymphocytes % (auto) 18.3 % (10.0-50.0); Mean Corpuscular Hemoglobin 31.2 pg (28.0-32.0); Mean Corpuscular Volume 94.5 fL (80.0-100.0); Monocytes # (auto) 1.6 uL; Monocytes % (auto) 13.9 % (0.0-12.0); Neutrophils # (auto) 7.4 uL; Neutrophils % (auto) 64.2 % (37.0-80.0); Nucleated Red Blood Cells % 0.1 %; Platelet Count (auto) 404 10^3/uL (140-450); Red Cell Distribution Width 16.3 % (11.8-14.3); White Blood Cell 11.6 10^3/uL (4.4-10.8)
[2017-09-29 04:05] LABS: Albumin 2.9 g/dL (3.4-5.0); BUN/Creatinine Ratio 20.5; Calcium 9.4 mg/dL (8.5-10.1); Potassium 3.4 mmol/L (3.5-5.1)
[2017-09-29 04:08] LABS: Total Protein 8.8 g/dL (6.4-8.2)
[2017-09-29] MEDS: ACCU-CHEK COMFORT CURVE STRIP VI SCH ×5 (06:19→22:59)
[2017-09-29] MEDS: FUROSEMIDE 40 MG/4 ML VIAL IV SCH ×2 (06:19→17:47)
[2017-09-29] MEDS: InsuLIN REG 1unit/0.01ml Soln (100units/ml) SC SCH ×5 (06:19→22:43)
[2017-09-29] MEDS ORDERED: POTASSIUM CHL 10% (20 MEQ/15ML) 15ml ORAL SOLN PO ONE (09:15)
[2017-09-29] MEDS: LEVOFLOXACIN 750MG 150 ML IV SCH (09:50)
[2017-09-29] MEDS: NICOTINE 21MG/24 HR TOPICAL PATCH TD SCH (09:51)
[2017-09-29] MEDS: ENOXAPARIN SOD 40 MG/0.4 ML SYRINGE SC SCH (09:51)
[2017-09-29] MEDS: FAMOTIDINE 20 MG TAB PO SCH ×2 (09:51→22:33)
[2017-09-29] MEDS: CARVEDILOL 12.5 MG TAB PO SCH ×2 (09:51→22:33)
[2017-09-29] MEDS: SPIRONOLACTONE 25 MG TAB PO SCH (09:51)
[2017-09-29] MEDS: ASPirin 81 mg TAB PO SCH (09:52)
[2017-09-29 11:19] LABS: Urine WBC None Seen /hpf (0 - 3)
[2017-09-29 11:47] LABS: Urine Bacteria NONE SEEN /hpf (None Seen); Urine Blood 3+ /uL (Negative); Urine Specific Gravity 1.015 (1.001-1.035)
[2017-09-29] MEDS: LINEZOLID 600MG/300ML 300 ML IV SCH ×2 (12:23→22:59)
[2017-09-29] MEDS: PRAVASTATIN SODIUM 20 MG TAB PO SCH (22:34)
[2017-09-30] VITALS (7 sets, daily range): BP systolic 104–122; BP diastolic 60–71
[2017-09-30] MEDS: IPRATROPIUM BROM 0.5 MG/2.5ML INH SOL NEB SCH ×6 (02:10→22:00)
[2017-09-30] MEDS: ALBUTEROL SULF 2.5 MG/0.5ML(0.5%) NEB SOLN NEB SCH ×6 (02:10→22:00)
[2017-09-30] MEDS: ACCU-CHEK COMFORT CURVE STRIP VI SCH ×4 (06:00→23:41)
[2017-09-30 06:43] LABS: Basophils # (auto) 0.1 uL; Basophils % (auto) 0.5 % (0.0-2.0); Eosinophils # (auto) 0.3 uL; Eosinophils % (auto) 2.2 % (0.0-7.0); Hematocrit 49.9 % (41.0-53.0); Hemoglobin 16.4 g/dL (13.5-17.5); Lymphocytes # (auto) 1.7 uL; Lymphocytes % (auto) 12.2 % (10.0-50.0); Mean Corpuscular Hemoglobin 31.3 pg (28.0-32.0); Mean Corpuscular Hgb Conc. 32.9 g/dL (32.0-36.0); Mean Corpuscular Volume 95.1 fL (80.0-100.0); Monocytes # (auto) 1.2 uL; Monocytes % (auto) 8.7 % (0.0-12.0); Neutrophils # (auto) 10.8 uL; Neutrophils % (auto) 76.4 % (37.0-80.0); Nucleated Red Blood Cells % 0.1 %; Platelet Count (auto) 423 10^3/uL (140-450); Red Blood Cells 5.24 10^6/uL (4.5-5.90); Red Cell Distribution Width 16.1 % (11.8-14.3); White Blood Cell 14.1 10^3/uL (4.4-10.8)
[2017-09-30 06:49] LABS: Potassium 3.5 mmol/L (3.5-5.1)
[2017-09-30 06:53] LABS: Albumin 2.8 g/dL (3.4-5.0); BUN/Creatinine Ratio 26.4; Calcium 9.4 mg/dL (8.5-10.1)
[2017-09-30] MEDS: FUROSEMIDE 40 MG/4 ML VIAL IV SCH ×2 (06:55→17:55)
[2017-09-30 06:56] LABS: Bilirubin, Total 2.1 mg/dL (0.2-1.0); Total Protein 8.8 g/dL (6.4-8.2)
[2017-09-30] MEDS: PIPERACILLIN-TAZOB 3.375GM 50 ML IV SCH ×4 (06:56→23:11)
[2017-09-30] MEDS: InsuLIN REG 1unit/0.01ml Soln (100units/ml) SC SCH ×4 (07:30→23:41)
[2017-09-30] MEDS: ENOXAPARIN SOD 40 MG/0.4 ML SYRINGE SC SCH (09:27)
[2017-09-30] MEDS: SPIRONOLACTONE 25 MG TAB PO SCH (09:27)
[2017-09-30] MEDS: FAMOTIDINE 20 MG TAB PO SCH ×2 (09:27→23:11)
[2017-09-30] MEDS: ASPirin 81 mg TAB PO SCH (09:27)
[2017-09-30] MEDS: CARVEDILOL 12.5 MG TAB PO SCH ×2 (09:28→23:17)
[2017-09-30] MEDS: LINEZOLID 600MG/300ML 300 ML IV SCH (09:28)
[2017-09-30] MEDS: LEVOFLOXACIN 750MG 150 ML IV SCH (09:28)
[2017-09-30] MEDS: NICOTINE 21MG/24 HR TOPICAL PATCH TD SCH (09:29)
[2017-09-30] MEDS: HYDROcodone-ACET 5/325MG TAB PO PRN ×2 (12:03→17:54)
[2017-09-30 12:09] LABS: INR 1.23 (0.9-1.15); Partial Thromboplastin Time 30.7 sec (22.64-33.71); Prothrombin Time 13.4 sec (9.37-12.3)
[2017-09-30] MEDS: PRAVASTATIN SODIUM 20 MG TAB PO SCH (23:11)
[2017-09-30] MEDS: LINEZOLID 600MG TABLET PO SCH (23:11)
[2017-10-01] MEDS: PIPERACILLIN-TAZOB 3.375GM 50 ML IV SCH ×2 (04:38→08:27)
[2017-10-01 05:09] VITALS: BP 111/66
[2017-10-01] MEDS: ACCU-CHEK COMFORT CURVE STRIP VI SCH ×2 (06:00→12:17)
[2017-10-01] MEDS: InsuLIN REG 1unit/0.01ml Soln (100units/ml) SC SCH ×2 (06:00→12:00)
[2017-10-01] MEDS: FUROSEMIDE 40 MG/4 ML VIAL IV SCH (06:43)
[2017-10-01] MEDS: IPRATROPIUM BROM 0.5 MG/2.5ML INH SOL NEB SCH ×2 (07:18→10:29)
[2017-10-01] MEDS: ALBUTEROL SULF 2.5 MG/0.5ML(0.5%) NEB SOLN NEB SCH ×2 (07:18→10:29)
[2017-10-01 07:33] VITALS: BP 110/59
[2017-10-01 08:00] VITALS: BP 110/59
[2017-10-01] MEDS: ENOXAPARIN SOD 40 MG/0.4 ML SYRINGE SC SCH (09:32)
[2017-10-01] MEDS: ASPirin 81 mg TAB PO SCH (09:33)
[2017-10-01] MEDS: LEVOFLOXACIN 750MG 150 ML IV SCH (09:33)
[2017-10-01] MEDS: CARVEDILOL 12.5 MG TAB PO SCH (09:33)
[2017-10-01] MEDS: NICOTINE 21MG/24 HR TOPICAL PATCH TD SCH (09:33)
[2017-10-01] MEDS: FAMOTIDINE 20 MG TAB PO SCH (09:33)
[2017-10-01] MEDS: SPIRONOLACTONE 25 MG TAB PO SCH (09:33)
[2017-10-01] MEDS: LINEZOLID 600MG TABLET PO SCH (09:46)
[2017-10-01] MEDS: HYDROcodone-ACET 5/325MG TAB PO PRN (09:46)
== END 2017-10-01 14:02 | disposition home or self-care (01) | DRG 207 ==
LOC: ER 19:24 → TELE 19:25 → ICU WEST 09-20 21:12 → TELE-WESTW 09-29 11:17
PROVIDERS: ADMIT Nurse Practitioner; ATTEND Family Medicine
PROC: 5A1955Z Respiratory Ventilation, Greater than 96 Consecutive Hours (ICD-10-PCS; principal; 2017-09-19)
PROC: 0BH17EZ Insertion of Endotracheal Airway into Trachea, Via Natural or Artificial Opening (ICD-10-PCS; 2017-09-19)
DX: J96.01 Acute respiratory failure with hypoxia (principal); I50.43 Acute on chronic combined systolic (congestive) and diastolic (congestive) heart failure; J18.1 Lobar pneumonia, unspecified organism; E87.2 Acidosis; D68.9 Coagulation defect, unspecified; I11.0 Hypertensive heart disease with heart failure; E87.1 Hypo-osmolality and hyponatremia; E66.2 Morbid (severe) obesity with alveolar hypoventilation; J44.0 Chronic obstructive pulmonary disease with (acute) lower respiratory infection; J44.1 Chronic obstructive pulmonary disease with (acute) exacerbation; Z95.1 Presence of aortocoronary bypass graft; E11.9 Type 2 diabetes mellitus without complications; F17.210 Nicotine dependence, cigarettes, uncomplicated; I25.10 Atherosclerotic heart disease of native coronary artery without angina pectoris; I25.5 Ischemic cardiomyopathy; Z95.5 Presence of coronary angioplasty implant and graft; Z88.8 Allergy status to other drugs, medicaments and biological substances
CPT/HCPCS: 36415; 36600; 51702; 71045; 71275; 80048; 80053; 80202; 81001; 82805; 82962; 83036; 83605; 83735; 83880; 84132; 84484; 85007; 85025; 85027; 85379; 85610; 85730; 87040; 87070; 87077; 87081; 87086; 87186; 87205; 93005; 93306; 93970; 94003; 94640; 94660; 96374; 96375; J0330; J1815; J1956; J2250; J2405; J2543; J2704; J7060

== ENCOUNTER 2021-03-25 02:51 | Inpatient (IN) | payer OTHER ==
[~2021-03-25] VITALS: Ht 182.9 cm; Wt 114.6 kg
[~2021-03-25 02:51] MED LIST: AML5T PO; AMLO-489 PO; ASPI81CH43 PO; BACL10TA PO; CARV25TA55 PO; FURO40TA4 PO; GABA300C10 PO; LISI20TA28 PO; METF-370 PO; PERCOT PO; PRAV20TA3 PO; SPIR25TA8 PO; TAMS0.4C36 PO
[2021-03-25 04:00] LABS: Basophils # (auto) 0.1 10 ^3/uL (0-0.2); Basophils % (auto) 0.5 % (0.0-2.0); Eosinophils # (auto) 0 10 ^3/uL (0-0.8); Eosinophils % (auto) 0.1 % (0.0-7.0); Hemoglobin 15.9 g/dL (13.5-17.5); Lymphocytes # (auto) 1.2 10 ^3/uL (0.4-5.4); Lymphocytes % (auto) 9.7 % (10.0-50.0); Mean Corpuscular Hemoglobin 29.6 pg (28.0-32.0); Mean Corpuscular Hgb Conc. 33.9 g/dL (32.0-36.0); Mean Corpuscular Volume 87.3 fL (80.0-100.0); Monocytes # (auto) 0.9 10 ^3/uL (0-1.3); Monocytes % (auto) 7.4 % (0.0-12.0); Neutrophils # (auto) 10.1 10 ^3/uL (1.6-8.6); Neutrophils % (auto) 82.3 % (37.0-80.0); Red Blood Cells 5.38 10^6/uL (4.5-5.90); Red Cell Distribution Width 18.1 % (11.8-14.3); White Blood Cell 12.2 10^3/uL (4.4-10.8)
[2021-03-25 04:17] LABS: INR 1.41 (0.9-1.15); Partial Thromboplastin Time 36.2 sec (23.6-33.0)
[2021-03-25 04:18] LABS: Albumin 3.2 g/dL (3.4-5.0); Anion Gap 6 (5-15); Blood Urea Nitrogen 10 mg/dL (7-18); Calcium 8.6 mg/dL (8.5-10.1); Carbon Dioxide 26 mmol/L (21-32); Chloride 102 mmol/L (98-107); Glucose 132 mg/dL (74-106); Lipase 132 U/L (73-393); Magnesium 1.8 mg/dL (1.6-2.6); Potassium 3.8 mmol/L (3.5-5.1); Sodium 134 mmol/L (136-145)
[2021-03-25 04:21] LABS: Alanine Aminotransferase 17 U/L (16-61); Alkaline Phosphatase 118 U/L (45-117); Amylase 70 U/L (25-115); Aspartate Aminotransferase 10 U/L (15-37); BUN/Creatinine Ratio 10.3; GFR African American 101 mL/min; GFR Non-African American 84 mL/min
[2021-03-25 04:24] LABS: Total Protein 8.3 g/dL (6.4-8.2)
[2021-03-25] MEDS ORDERED: cefTRIAXone 1GM/50ML D5W 50 ML IV ONE (05:00)
[2021-03-25] MEDS ORDERED: fentaNYL CITRATE 100 MCG/2 ML VL IV ONE (05:00)
[2021-03-25] MEDS ORDERED: ONDANSETRON HCL 4 MG/2 ML VIAL IV ONE (05:00)
[2021-03-25 05:52] LABS: Lactic Acid w/Reflex 2.3 mmol/L (0.4-2.0)
[2021-03-25 06:07] LABS: Urine Bacteria NONE SEEN /hpf (None Seen); Urine Blood Negative /uL (Negative); Urine Mucus FEW (None Seen); Urine Specific Gravity 1.031 (1.001-1.035); Urine WBC 3 /hpf (0 - 3)
[2021-03-25] MEDS ORDERED: DEXTROSE (50%) 50ML SYRG IV PRN (07:15)
[2021-03-25] MEDS: SODIUM CHLORIDE 0.9% 1,000 ML IV SCH ×2 (08:16→21:21)
[2021-03-25] MEDS: PANTOPRAZOLE 40 MG/10 ML VIAL INJ IV SCH (09:53)
[2021-03-25] MEDS: ACCU-CHEK COMFORT CURVE STRIP VI SCH ×3 (12:21→23:50)
[2021-03-25] MEDS: InsuLIN REG 1unit/0.01ml Soln (100units/ml) SC SCH ×3 (12:22→23:55)
[2021-03-25] MEDS ORDERED: MAGNESIUM SULFATE 1GM/100ML 100 ML IV ONE (13:00)
[2021-03-25] MEDS ORDERED: FUROSEMIDE 20 MG/2 ML VIAL IV ONE (13:00)
[2021-03-25] MEDS: metroNIDAZOLE 500MG/100ML 100 ML IV SCH ×2 (14:09→22:09)
[2021-03-25] MEDS: CARVEDILOL 12.5 MG TAB PO SCH (18:00)
[2021-03-25] MEDS: TAMSULOSIN HYDROCHLORIDE 0.4 MG CAP PO SCH (18:22)
[2021-03-25 19:50] VITALS: BP 124/56
[2021-03-25] MEDS: MORPHINE SULFATE 4 MG/ML SYR/VIAL IV PRN (21:22)
[2021-03-25 22:00] VITALS: BP 124/56
[2021-03-25] MEDS: ATORVASTATIN 20 MG TAB PO SCH (22:10)
[2021-03-26] MEDS ORDERED: MIRT-66 PO (02:14)
[2021-03-26] MEDS ORDERED: DIGO0.12 PO (02:14)
[2021-03-26] MEDS ORDERED: CLOP75TA70 PO (02:14)
[2021-03-26] MEDS ORDERED: RIVA20TA PO (02:14)
[2021-03-26] MEDS ORDERED: ARIP10TA29 PO (02:14)
[2021-03-26] MEDS ORDERED: SERT50TA19 PO (02:16)
[2021-03-26] MEDS ORDERED: POTA10TA51 PO (02:16)
[2021-03-26 05:00] VITALS: BP 103/51
[2021-03-26 05:54] LABS: Basophils # (auto) 0.1 10 ^3/uL (0-0.2); Basophils % (auto) 0.4 % (0.0-2.0); Eosinophils # (auto) 0 10 ^3/uL (0-0.8); Eosinophils % (auto) 0.1 % (0.0-7.0); Hematocrit 45.6 % (41.0-53.0); Hemoglobin 15.2 g/dL (13.5-17.5); Lymphocytes # (auto) 1.8 10 ^3/uL (0.4-5.4); Lymphocytes % (auto) 8.9 % (10.0-50.0); Mean Corpuscular Hemoglobin 29.5 pg (28.0-32.0); Mean Corpuscular Hgb Conc. 33.4 g/dL (32.0-36.0); Mean Corpuscular Volume 88.3 fL (80.0-100.0); Monocytes # (auto) 1.9 10 ^3/uL (0-1.3); Monocytes % (auto) 9.2 % (0.0-12.0); Neutrophils # (auto) 16.6 10 ^3/uL (1.6-8.6); Neutrophils % (auto) 81.4 % (37.0-80.0); Red Blood Cells 5.16 10^6/uL (4.5-5.90); White Blood Cell 20.4 10^3/uL (4.4-10.8)
[2021-03-26] MEDS: metroNIDAZOLE 500MG/100ML 100 ML IV SCH ×2 (06:00→15:00)
[2021-03-26] MEDS: FUROSEMIDE 20 MG/2 ML VIAL IV SCH ×2 (06:01→17:40)
[2021-03-26] MEDS: ACCU-CHEK COMFORT CURVE STRIP VI SCH ×3 (06:01→17:41)
[2021-03-26 06:10] LABS: Potassium 3.5 mmol/L (3.5-5.1)
[2021-03-26] MEDS: InsuLIN REG 1unit/0.01ml Soln (100units/ml) SC SCH ×3 (06:15→17:49)
[2021-03-26 06:21] LABS: Albumin 2.7 g/dL (3.4-5.0); BUN/Creatinine Ratio 19.5; Bilirubin, Total 1.8 mg/dL (0.2-1.0); Calcium 8.8 mg/dL (8.5-10.1); Total Protein 8.2 g/dL (6.4-8.2)
[2021-03-26 07:30] VITALS: BP 103/51
[2021-03-26] MEDS ORDERED: amLODIPine BESYLATE 5 MG TAB PO SCH (10:00)
[2021-03-26] MEDS ORDERED: FUROSEMIDE 20 MG TAB PO SCH (10:00)
[2021-03-26] MEDS: cefTRIAXone 1GM/50ML D5W 50 ML IV SCH (10:58)
[2021-03-26] MEDS: CARVEDILOL 12.5 MG TAB PO SCH ×2 (10:58→17:40)
[2021-03-26] MEDS: SODIUM CHLORIDE 0.9% 1,000 ML IV SCH (10:59)
[2021-03-26] MEDS: PANTOPRAZOLE 40 MG/10 ML VIAL INJ IV SCH (10:59)
[2021-03-26] MEDS: SPIRONOLACTONE 25 MG TAB PO SCH (11:00)
[2021-03-26] MEDS: LISINOPRIL 20 MG TAB PO SCH (11:01)
[2021-03-26] MEDS: ceFAZolin 2 GM in D5W 5% 100 ML IV SCH ×2 (14:00→22:34)
[2021-03-26] MEDS ORDERED: metroNIDAZOLE 500MG/100ML 100 ML IV SCH (15:00)
[2021-03-26] MEDS: TAMSULOSIN HYDROCHLORIDE 0.4 MG CAP PO SCH (17:40)
[2021-03-26] MEDS: MORPHINE SULFATE 4 MG/ML SYR/VIAL IV PRN ×2 (19:33→23:35)
[2021-03-26] MEDS ORDERED: IPRATROPIUM BROM 0.5 MG/2.5ML INH SOL ONE (19:53)
[2021-03-26] MEDS ORDERED: ALBUTEROL SULF 2.5 MG/0.5ML(0.5%) NEB SOLN ONE (19:53)
[2021-03-26] MEDS ORDERED: FUROSEMIDE 40 MG/4 ML VIAL IV ONE (20:15)
[2021-03-26 22:00] VITALS: BP 103/55
[2021-03-26] MEDS: ATORVASTATIN 20 MG TAB PO SCH (22:29)
[2021-03-26] MEDS: methylPREDNISolone SOD SUCC 40 MG/ML VL IV SCH (22:30)
[2021-03-26] MEDS ORDERED: ALBUTEROL SULF 2.5 MG/0.5ML(0.5%) NEB SOLN NEB PRN (23:00)
[2021-03-26] MEDS ORDERED: IPRATROPIUM BROM 0.5 MG/2.5ML INH SOL NEB PRN (23:00)
[2021-03-27] VITALS (7 sets, daily range): BP systolic 94–107; BP diastolic 52–59
[2021-03-27] MEDS: metroNIDAZOLE 500MG/100ML 100 ML IV SCH ×4 (00:44→22:12)
[2021-03-27] MEDS: ACCU-CHEK COMFORT CURVE STRIP VI SCH ×5 (00:44→23:16)
[2021-03-27] MEDS: InsuLIN REG 1unit/0.01ml Soln (100units/ml) SC SCH ×5 (00:48→23:16)
[2021-03-27] MEDS: MORPHINE SULFATE 4 MG/ML SYR/VIAL IV PRN ×2 (05:11→09:07)
[2021-03-27] MEDS: ceFAZolin 2 GM in D5W 5% 100 ML IV SCH ×3 (05:45→22:11)
[2021-03-27] MEDS: FUROSEMIDE 20 MG/2 ML VIAL IV SCH ×2 (05:46→17:57)
[2021-03-27] MEDS: ALBUTEROL SULF 2.5 MG/0.5ML(0.5%) NEB SOLN NEB SCH ×3 (06:18→19:14)
[2021-03-27] MEDS: IPRATROPIUM BROM 0.5 MG/2.5ML INH SOL NEB SCH ×3 (06:18→19:14)
[2021-03-27] MEDS: CARVEDILOL 12.5 MG TAB PO SCH ×2 (08:48→17:58)
[2021-03-27] MEDS: cefTRIAXone 1GM/50ML D5W 50 ML IV SCH (09:06)
[2021-03-27] MEDS: methylPREDNISolone SOD SUCC 40 MG/ML VL IV SCH ×2 (10:25→22:11)
[2021-03-27] MEDS: PANTOPRAZOLE 40 MG/10 ML VIAL INJ IV SCH (10:25)
[2021-03-27] MEDS: SPIRONOLACTONE 25 MG TAB PO SCH (10:25)
[2021-03-27] MEDS: LISINOPRIL 20 MG TAB PO SCH (10:26)
[2021-03-27] MEDS: TAMSULOSIN HYDROCHLORIDE 0.4 MG CAP PO SCH (17:58)
[2021-03-27] MEDS: ATORVASTATIN 20 MG TAB PO SCH (22:11)
[2021-03-28 05:00] VITALS: BP 118/60
[2021-03-28] MEDS: ceFAZolin 2 GM in D5W 5% 100 ML IV SCH (05:56)
[2021-03-28] MEDS: FUROSEMIDE 20 MG/2 ML VIAL IV SCH ×2 (05:56→17:29)
[2021-03-28] MEDS: ACCU-CHEK COMFORT CURVE STRIP VI SCH ×4 (05:57→23:48)
[2021-03-28] MEDS: metroNIDAZOLE 500MG/100ML 100 ML IV SCH ×3 (05:57→22:10)
[2021-03-28 06:04] LABS: Basophils # (auto) 0.1 10 ^3/uL (0-0.2); Basophils % (auto) 0.3 % (0.0-2.0); Eosinophils # (auto) 0 10 ^3/uL (0-0.8); Hematocrit 45.3 % (41.0-53.0); Hemoglobin 15.2 g/dL (13.5-17.5); Lymphocytes # (auto) 0.9 10 ^3/uL (0.4-5.4); Lymphocytes % (auto) 4.6 % (10.0-50.0); Mean Corpuscular Hemoglobin 29.4 pg (28.0-32.0); Mean Corpuscular Hgb Conc. 33.5 g/dL (32.0-36.0); Mean Corpuscular Volume 87.8 fL (80.0-100.0); Monocytes # (auto) 0.7 10 ^3/uL (0-1.3); Monocytes % (auto) 3.3 % (0.0-12.0); Neutrophils # (auto) 18.6 10 ^3/uL (1.6-8.6); Neutrophils % (auto) 91.8 % (37.0-80.0); Red Blood Cells 5.15 10^6/uL (4.5-5.90); Red Cell Distribution Width 18.4 % (11.8-14.3); White Blood Cell 20.2 10^3/uL (4.4-10.8)
[2021-03-28] MEDS: InsuLIN REG 1unit/0.01ml Soln (100units/ml) SC SCH ×3 (06:08→17:30)
[2021-03-28] MEDS: IPRATROPIUM BROM 0.5 MG/2.5ML INH SOL NEB SCH ×3 (06:22→18:48)
[2021-03-28] MEDS: ALBUTEROL SULF 2.5 MG/0.5ML(0.5%) NEB SOLN NEB SCH ×3 (06:22→18:48)
[2021-03-28 06:27] LABS: Potassium 3.6 mmol/L (3.5-5.1)
[2021-03-28 06:35] LABS: Albumin 2.3 g/dL (3.4-5.0); BUN/Creatinine Ratio 40.3; Calcium 9.3 mg/dL (8.5-10.1); Total Protein 7.5 g/dL (6.4-8.2)
[2021-03-28 08:00] VITALS: BP 117/57
[2021-03-28 08:30] VITALS: BP 117/57
[2021-03-28] MEDS: CARVEDILOL 12.5 MG TAB PO SCH ×2 (09:01→17:29)
[2021-03-28] MEDS: cefTRIAXone 1GM/50ML D5W 50 ML IV SCH (09:01)
[2021-03-28] MEDS: PANTOPRAZOLE 40 MG/10 ML VIAL INJ IV SCH (09:02)
[2021-03-28] MEDS: methylPREDNISolone SOD SUCC 40 MG/ML VL IV SCH ×2 (09:02→22:09)
[2021-03-28] MEDS: SPIRONOLACTONE 25 MG TAB PO SCH (09:02)
[2021-03-28] MEDS: LISINOPRIL 20 MG TAB PO SCH (09:03)
[2021-03-28] MEDS: PIPERACILLIN-TAZOB 3.375GM 100 ML IV SCH ×4 (12:00→23:48)
[2021-03-28 12:51] VITALS: BP 122/65
[2021-03-28 17:00] VITALS: BP 126/57
[2021-03-28] MEDS: TAMSULOSIN HYDROCHLORIDE 0.4 MG CAP PO SCH (17:29)
[2021-03-28] MEDS: MORPHINE SULFATE 4 MG/ML SYR/VIAL IV PRN (18:27)
[2021-03-28 22:00] VITALS: BP 121/59
[2021-03-28] MEDS: ATORVASTATIN 20 MG TAB PO SCH (22:09)
[2021-03-29] MEDS: InsuLIN REG 1unit/0.01ml Soln (100units/ml) SC SCH ×4 (00:04→17:55)
[2021-03-29 05:00] VITALS: BP 114/57
[2021-03-29] MEDS: PIPERACILLIN-TAZOB 3.375GM 100 ML IV SCH ×4 (05:25→23:55)
[2021-03-29] MEDS: FUROSEMIDE 20 MG/2 ML VIAL IV SCH ×2 (05:25→18:34)
[2021-03-29] MEDS: metroNIDAZOLE 500MG/100ML 100 ML IV SCH (05:26)
[2021-03-29] MEDS: ACCU-CHEK COMFORT CURVE STRIP VI SCH ×4 (05:38→23:55)
[2021-03-29] MEDS: ALBUTEROL SULF 2.5 MG/0.5ML(0.5%) NEB SOLN NEB SCH ×3 (06:12→18:55)
[2021-03-29] MEDS: IPRATROPIUM BROM 0.5 MG/2.5ML INH SOL NEB SCH ×3 (06:12→18:55)
[2021-03-29 06:55] LABS: Basophils # (auto) 0 10 ^3/uL (0-0.2); Basophils % (auto) 0.1 % (0.0-2.0); Eosinophils # (auto) 0 10 ^3/uL (0-0.8); Hematocrit 46.2 % (41.0-53.0); Hemoglobin 15.8 g/dL (13.5-17.5); Lymphocytes # (auto) 0.8 10 ^3/uL (0.4-5.4); Lymphocytes % (auto) 4.3 % (10.0-50.0); Mean Corpuscular Hgb Conc. 34.2 g/dL (32.0-36.0); Mean Corpuscular Volume 87.7 fL (80.0-100.0); Monocytes # (auto) 0.9 10 ^3/uL (0-1.3); Neutrophils # (auto) 15.8 10 ^3/uL (1.6-8.6); Neutrophils % (auto) 90.6 % (37.0-80.0); Red Blood Cells 5.27 10^6/uL (4.5-5.90); Red Cell Distribution Width 18.5 % (11.8-14.3); White Blood Cell 17.5 10^3/uL (4.4-10.8)
[2021-03-29 07:07] LABS: Potassium 3.7 mmol/L (3.5-5.1)
[2021-03-29 07:16] LABS: Albumin 2.2 g/dL (3.4-5.0); Bilirubin, Total 1.1 mg/dL (0.2-1.0); Calcium 8.8 mg/dL (8.5-10.1); Total Protein 7.5 g/dL (6.4-8.2)
[2021-03-29 09:00] VITALS: BP 113/59
[2021-03-29] MEDS: methylPREDNISolone SOD SUCC 40 MG/ML VL IV SCH ×2 (09:15→22:01)
[2021-03-29] MEDS: CARVEDILOL 12.5 MG TAB PO SCH ×2 (09:15→18:34)
[2021-03-29] MEDS: PANTOPRAZOLE 40 MG/10 ML VIAL INJ IV SCH (09:15)
[2021-03-29] MEDS: SPIRONOLACTONE 25 MG TAB PO SCH (09:15)
[2021-03-29] MEDS: LISINOPRIL 20 MG TAB PO SCH (10:00)
[2021-03-29 13:00] VITALS: BP 109/65
[2021-03-29 17:00] VITALS: BP 124/69
[2021-03-29] MEDS: TAMSULOSIN HYDROCHLORIDE 0.4 MG CAP PO SCH (18:35)
[2021-03-29] MEDS: MORPHINE SULFATE INJECTION 2 MG/ML SYRG IV PRN (18:51)
[2021-03-29 18:57] VITALS: BP 124/69
[2021-03-29 21:59] VITALS: BP 127/56
[2021-03-29] MEDS: ATORVASTATIN 20 MG TAB PO SCH (22:01)
[2021-03-30 04:57] VITALS: BP 112/65
[2021-03-30] MEDS: FUROSEMIDE 20 MG/2 ML VIAL IV SCH ×2 (05:26→18:15)
[2021-03-30] MEDS: ACCU-CHEK COMFORT CURVE STRIP VI SCH ×4 (05:27→23:23)
[2021-03-30] MEDS: PIPERACILLIN-TAZOB 3.375GM 100 ML IV SCH ×4 (05:27→23:22)
[2021-03-30] MEDS: InsuLIN REG 1unit/0.01ml Soln (100units/ml) SC SCH ×5 (06:05→23:27)
[2021-03-30 06:22] LABS: Basophils # (auto) 0 10 ^3/uL (0-0.2); Basophils % (auto) 0.2 % (0.0-2.0); Eosinophils # (auto) 0 10 ^3/uL (0-0.8); Hematocrit 47.4 % (41.0-53.0); Hemoglobin 16.4 g/dL (13.5-17.5); Lymphocytes % (auto) 5.5 % (10.0-50.0); Mean Corpuscular Hemoglobin 30.4 pg (28.0-32.0); Mean Corpuscular Hgb Conc. 34.6 g/dL (32.0-36.0); Mean Corpuscular Volume 87.9 fL (80.0-100.0); Monocytes % (auto) 5.7 % (0.0-12.0); Neutrophils # (auto) 15.9 10 ^3/uL (1.6-8.6); Neutrophils % (auto) 88.6 % (37.0-80.0); Red Blood Cells 5.39 10^6/uL (4.5-5.90); Red Cell Distribution Width 17.8 % (11.8-14.3); White Blood Cell 17.9 10^3/uL (4.4-10.8)
[2021-03-30 06:46] LABS: Alanine Aminotransferase 17 U/L (16-61); Albumin 1.9 g/dL (3.4-5.0); Anion Gap 5 (5-15); Aspartate Aminotransferase 16 U/L (15-37); BUN/Creatinine Ratio 37.1; Blood Urea Nitrogen 23 mg/dL (7-18); Calcium 8.3 mg/dL (8.5-10.1); Carbon Dioxide 29 mmol/L (21-32); Chloride 103 mmol/L (98-107); GFR African American 170 mL/min; GFR Non-African American 140 mL/min; Glucose 149 mg/dL (74-106); Potassium 3.7 mmol/L (3.5-5.1); Sodium 137 mmol/L (136-145)
[2021-03-30 06:49] LABS: Alkaline Phosphatase 85 U/L (45-117); Bilirubin, Total 1.5 mg/dL (0.2-1.0); Total Protein 7.2 g/dL (6.4-8.2)
[2021-03-30] MEDS: IPRATROPIUM BROM 0.5 MG/2.5ML INH SOL NEB SCH ×3 (07:21→19:22)
[2021-03-30] MEDS: ALBUTEROL SULF 2.5 MG/0.5ML(0.5%) NEB SOLN NEB SCH ×3 (07:21→19:22)
[2021-03-30] MEDS: CARVEDILOL 12.5 MG TAB PO SCH ×2 (08:55→18:15)
[2021-03-30 09:00] VITALS: BP 126/66
[2021-03-30] MEDS: PANTOPRAZOLE 40 MG/10 ML VIAL INJ IV SCH (10:07)
[2021-03-30] MEDS: SPIRONOLACTONE 25 MG TAB PO SCH (10:08)
[2021-03-30] MEDS: methylPREDNISolone SOD SUCC 40 MG/ML VL IV SCH ×2 (10:08→23:22)
[2021-03-30] MEDS: LISINOPRIL 20 MG TAB PO SCH (10:09)
[2021-03-30 13:00] VITALS: BP 126/66
[2021-03-30] MEDS ORDERED: PHYTONADIONE (VIT K)10 MG/ML 1ML VIAL SUBCUT ONE (13:30)
[2021-03-30] MEDS: MORPHINE SULFATE INJECTION 2 MG/ML SYRG IV PRN (15:21)
[2021-03-30] MEDS: TAMSULOSIN HYDROCHLORIDE 0.4 MG CAP PO SCH (18:15)
[2021-03-30 22:00] VITALS: BP 122/41
[2021-03-30] MEDS: ATORVASTATIN 20 MG TAB PO SCH (23:22)
[2021-03-31] MEDS ORDERED: PHYTONADIONE (VIT K)10 MG/ML 1ML VIAL SUBCUT ONE (01:00)
[2021-03-31 05:00] VITALS: BP 117/80
[2021-03-31] MEDS: PIPERACILLIN-TAZOB 3.375GM 100 ML IV SCH ×3 (05:13→18:09)
[2021-03-31] MEDS: FUROSEMIDE 20 MG/2 ML VIAL IV SCH ×2 (05:13→18:11)
[2021-03-31] MEDS: ACCU-CHEK COMFORT CURVE STRIP VI SCH ×3 (05:13→18:09)
[2021-03-31] MEDS: InsuLIN REG 1unit/0.01ml Soln (100units/ml) SC SCH ×3 (05:37→18:17)
[2021-03-31 05:50] LABS: INR 1.33 (0.9-1.15); Partial Thromboplastin Time 26.5 sec (23.6-33.0)
[2021-03-31] MEDS: ALBUTEROL SULF 2.5 MG/0.5ML(0.5%) NEB SOLN NEB SCH ×3 (07:53→18:45)
[2021-03-31] MEDS: IPRATROPIUM BROM 0.5 MG/2.5ML INH SOL NEB SCH ×3 (07:53→18:45)
[2021-03-31] MEDS: CARVEDILOL 12.5 MG TAB PO SCH ×2 (08:41→18:10)
[2021-03-31 09:00] VITALS: BP 120/57
[2021-03-31] MEDS: PANTOPRAZOLE 40 MG/10 ML VIAL INJ IV SCH (10:15)
[2021-03-31] MEDS: methylPREDNISolone SOD SUCC 40 MG/ML VL IV SCH ×2 (10:15→22:38)
[2021-03-31] MEDS: SPIRONOLACTONE 25 MG TAB PO SCH (10:21)
[2021-03-31] MEDS: LISINOPRIL 20 MG TAB PO SCH (10:22)
[2021-03-31] MEDS ORDERED: BUPIVACAINE W/ EPINEPH 0.25% INJ 50ML MDV ONE (12:39)
[2021-03-31 13:00] VITALS: BP 127/67
[2021-03-31] MEDS ORDERED: fentaNYL CITRATE 5 ML ONE (14:15)
[2021-03-31] MEDS ORDERED: MIDAZOLAM HCL 2MG/2ML 2ml VIAL (1mg/ml) ONE (14:15)
[2021-03-31] MEDS ORDERED: SUCCINYLCHOLINE CHLORIDE 20 MG/ML 10ML VIAL IV ONE (14:20)
[2021-03-31] MEDS ORDERED: PROPOFOL 10 MG/ML 20 ML IV ONE (14:35)
[2021-03-31] MEDS ORDERED: ONDANSETRON HCL 4 MG/2 ML VIAL ONE (14:35)
[2021-03-31] MEDS ORDERED: LIDOCAINE 2% (LOCAL ANESTH.) PF 5ml SDV ONE (14:35)
[2021-03-31 16:42] VITALS: BP 131/69
[2021-03-31] MEDS: TAMSULOSIN HYDROCHLORIDE 0.4 MG CAP PO SCH (18:09)
[2021-03-31 20:00] VITALS: BP 135/62
[2021-03-31 21:53] VITALS: BP 135/62
[2021-03-31] MEDS: ATORVASTATIN 20 MG TAB PO SCH (22:37)
[2021-04-01] MEDS: PIPERACILLIN-TAZOB 3.375GM 100 ML IV SCH ×5 (00:50→23:47)
[2021-04-01 05:00] VITALS: BP 128/75
[2021-04-01] MEDS: ACCU-CHEK COMFORT CURVE STRIP VI SCH ×5 (06:00→23:43)
[2021-04-01] MEDS: InsuLIN REG 1unit/0.01ml Soln (100units/ml) SC SCH ×5 (06:00→23:46)
[2021-04-01] MEDS: ALBUTEROL SULF 2.5 MG/0.5ML(0.5%) NEB SOLN NEB SCH ×3 (06:26→17:41)
[2021-04-01] MEDS: IPRATROPIUM BROM 0.5 MG/2.5ML INH SOL NEB SCH ×3 (06:26→19:29)
[2021-04-01] MEDS: FUROSEMIDE 20 MG/2 ML VIAL IV SCH ×2 (06:30→17:43)
[2021-04-01 08:52] VITALS: BP 134/65
[2021-04-01] MEDS: methylPREDNISolone SOD SUCC 40 MG/ML VL IV SCH ×2 (09:04→21:02)
[2021-04-01] MEDS: PANTOPRAZOLE 40 MG/10 ML VIAL INJ IV SCH (09:04)
[2021-04-01] MEDS: SPIRONOLACTONE 25 MG TAB PO SCH (09:05)
[2021-04-01] MEDS: LISINOPRIL 20 MG TAB PO SCH (09:05)
[2021-04-01] MEDS: CARVEDILOL 12.5 MG TAB PO SCH ×2 (09:05→17:42)
[2021-04-01 11:48] LABS: Basophils # (auto) 0 10 ^3/uL (0-0.2); Hemoglobin 17.8 g/dL (13.5-17.5); Lymphocytes # (auto) 1.3 10 ^3/uL (0.4-5.4); Lymphocytes % (auto) 6.2 % (10.0-50.0); Monocytes % (auto) 4.9 % (0.0-12.0); White Blood Cell 20.5 10^3/uL (4.4-10.8)
[2021-04-01 11:50] LABS: Basophils % (auto) 0.2 % (0.0-2.0); Eosinophils # (auto) 0 10 ^3/uL (0-0.8); Eosinophils % (auto) 0.1 % (0.0-7.0); Hematocrit 52.3 % (41.0-53.0); Mean Corpuscular Hemoglobin 29.7 pg (28.0-32.0); Mean Corpuscular Volume 87.2 fL (80.0-100.0); Neutrophils # (auto) 18.2 10 ^3/uL (1.6-8.6); Neutrophils % (auto) 88.6 % (37.0-80.0); Red Blood Cells 5.99 10^6/uL (4.5-5.90)
[2021-04-01] MEDS ORDERED: FUROSEMIDE 20 MG/2 ML VIAL IV ONE (12:00)
[2021-04-01] MEDS ORDERED: FUROSEMIDE 40 MG/4 ML VIAL IV ONE (12:00)
[2021-04-01 12:05] LABS: Calcium 8.4 mg/dL (8.5-10.1); Potassium 3.9 mmol/L (3.5-5.1)
[2021-04-01 12:11] LABS: BUN/Creatinine Ratio 31.7; Bilirubin, Total 1.5 mg/dL (0.2-1.0); Total Protein 7.4 g/dL (6.4-8.2)
[2021-04-01 13:00] VITALS: BP 122/65
[2021-04-01] MEDS ORDERED: IOHEXOL 350 MG/ML 100ML IJ ONE (15:26)
[2021-04-01 17:10] VITALS: BP 112/64
[2021-04-01] MEDS: TAMSULOSIN HYDROCHLORIDE 0.4 MG CAP PO SCH (17:40)
[2021-04-01] MEDS: ATORVASTATIN 20 MG TAB PO SCH (21:03)
[2021-04-01 21:52] VITALS: BP 113/67
[2021-04-02 05:00] VITALS: BP 115/61
[2021-04-02] MEDS: FUROSEMIDE 20 MG/2 ML VIAL IV SCH ×2 (05:47→17:29)
[2021-04-02] MEDS: PIPERACILLIN-TAZOB 3.375GM 100 ML IV SCH ×3 (05:47→17:30)
[2021-04-02] MEDS: ACCU-CHEK COMFORT CURVE STRIP VI SCH ×3 (05:48→17:00)
[2021-04-02] MEDS: InsuLIN REG 1unit/0.01ml Soln (100units/ml) SC SCH ×3 (06:03→17:30)
[2021-04-02] MEDS: CARVEDILOL 12.5 MG TAB PO SCH ×2 (08:12→17:29)
[2021-04-02 09:00] VITALS: BP 134/69
[2021-04-02] MEDS: SPIRONOLACTONE 25 MG TAB PO SCH (09:39)
[2021-04-02] MEDS: PANTOPRAZOLE 40 MG/10 ML VIAL INJ IV SCH (09:39)
[2021-04-02] MEDS: methylPREDNISolone SOD SUCC 40 MG/ML VL IV SCH ×2 (09:39→22:16)
[2021-04-02] MEDS: LISINOPRIL 20 MG TAB PO SCH (09:40)
[2021-04-02] MEDS: IPRATROPIUM BROM 0.5 MG/2.5ML INH SOL NEB SCH ×3 (11:25→19:58)
[2021-04-02] MEDS: ALBUTEROL SULF 2.5 MG/0.5ML(0.5%) NEB SOLN NEB SCH ×3 (11:25→19:59)
[2021-04-02 13:00] VITALS: BP 120/66
[2021-04-02 16:40] VITALS: BP 121/62
[2021-04-02] MEDS: TAMSULOSIN HYDROCHLORIDE 0.4 MG CAP PO SCH (17:29)
[2021-04-02 22:00] VITALS: BP 98/44
[2021-04-02] MEDS: ATORVASTATIN 20 MG TAB PO SCH (22:17)
[2021-04-03] VITALS: BP 113/71
[2021-04-03] MEDS: PIPERACILLIN-TAZOB 3.375GM 100 ML IV SCH ×5 (00:33→23:58)
[2021-04-03] MEDS: ACCU-CHEK COMFORT CURVE STRIP VI SCH ×5 (00:33→23:58)
[2021-04-03] MEDS: InsuLIN REG 1unit/0.01ml Soln (100units/ml) SC SCH ×4 (00:44→18:08)
[2021-04-03 05:00] VITALS: BP 132/72
[2021-04-03] MEDS: FUROSEMIDE 20 MG/2 ML VIAL IV SCH ×2 (05:55→18:06)
[2021-04-03] MEDS: ALBUTEROL SULF 2.5 MG/0.5ML(0.5%) NEB SOLN NEB SCH ×3 (06:49→18:21)
[2021-04-03] MEDS: IPRATROPIUM BROM 0.5 MG/2.5ML INH SOL NEB SCH ×3 (06:49→18:21)
[2021-04-03 09:00] VITALS: BP 108/58
[2021-04-03] MEDS: CARVEDILOL 12.5 MG TAB PO SCH ×2 (09:20→18:07)
[2021-04-03] MEDS: SPIRONOLACTONE 25 MG TAB PO SCH (09:56)
[2021-04-03] MEDS: methylPREDNISolone SOD SUCC 40 MG/ML VL IV SCH ×2 (09:56→22:36)
[2021-04-03] MEDS: LISINOPRIL 20 MG TAB PO SCH (09:56)
[2021-04-03] MEDS: PANTOPRAZOLE 40 MG/10 ML VIAL INJ IV SCH (09:56)
[2021-04-03 13:00] VITALS: BP 129/58
[2021-04-03 16:38] VITALS: BP 91/50
[2021-04-03] MEDS: TAMSULOSIN HYDROCHLORIDE 0.4 MG CAP PO SCH (18:07)
[2021-04-03] MEDS: MORPHINE SULFATE INJECTION 2 MG/ML SYRG IV PRN (20:24)
[2021-04-03 22:00] VITALS: BP 102/63
[2021-04-03] MEDS: ATORVASTATIN 20 MG TAB PO SCH (22:37)
[2021-04-04] MEDS: InsuLIN REG 1unit/0.01ml Soln (100units/ml) SC SCH ×4 (00:03→18:20)
[2021-04-04 05:00] VITALS: BP 121/67
[2021-04-04] MEDS: ALBUTEROL SULF 2.5 MG/0.5ML(0.5%) NEB SOLN NEB SCH ×3 (06:07→18:25)
[2021-04-04] MEDS: IPRATROPIUM BROM 0.5 MG/2.5ML INH SOL NEB SCH ×3 (06:07→18:25)
[2021-04-04] MEDS: PIPERACILLIN-TAZOB 3.375GM 100 ML IV SCH ×2 (06:34→12:11)
[2021-04-04] MEDS: FUROSEMIDE 20 MG/2 ML VIAL IV SCH ×2 (06:34→18:18)
[2021-04-04 06:35] LABS: Basophils # (auto) 0.1 10 ^3/uL (0-0.2); Eosinophils # (auto) 0 10 ^3/uL (0-0.8)
[2021-04-04] MEDS: ACCU-CHEK COMFORT CURVE STRIP VI SCH ×3 (06:35→18:18)
[2021-04-04 06:40] LABS: Basophils % (auto) 0.5 % (0.0-2.0); Eosinophils % (auto) 0.2 % (0.0-7.0); Hematocrit 51.9 % (41.0-53.0); Hemoglobin 17.2 g/dL (13.5-17.5); Lymphocytes # (auto) 1.5 10 ^3/uL (0.4-5.4); Mean Corpuscular Hemoglobin 29.1 pg (28.0-32.0); Mean Corpuscular Hgb Conc. 33.1 g/dL (32.0-36.0); Mean Corpuscular Volume 87.9 fL (80.0-100.0); Monocytes # (auto) 0.9 10 ^3/uL (0-1.3); Monocytes % (auto) 3.8 % (0.0-12.0); Neutrophils # (auto) 21.8 10 ^3/uL (1.6-8.6); Neutrophils % (auto) 89.5 % (37.0-80.0); Red Cell Distribution Width 17.5 % (11.8-14.3); White Blood Cell 24.3 10^3/uL (4.4-10.8)
[2021-04-04 06:51] LABS: Calcium 8.5 mg/dL (8.5-10.1); Potassium 4.2 mmol/L (3.5-5.1)
[2021-04-04 06:53] LABS: BUN/Creatinine Ratio 37.7
[2021-04-04] MEDS: CARVEDILOL 12.5 MG TAB PO SCH ×2 (08:00→18:18)
[2021-04-04 09:00] VITALS: BP 120/66
[2021-04-04] MEDS: LISINOPRIL 20 MG TAB PO SCH (10:28)
[2021-04-04] MEDS: SPIRONOLACTONE 25 MG TAB PO SCH (10:29)
[2021-04-04] MEDS: PANTOPRAZOLE 40 MG/10 ML VIAL INJ IV SCH (10:29)
[2021-04-04] MEDS: methylPREDNISolone SOD SUCC 40 MG/ML VL IV SCH ×2 (10:29→22:01)
[2021-04-04] MEDS ORDERED: VANCOMYCIN PER PHARMACY 0 MG IV SCH (12:30)
[2021-04-04 13:00] VITALS: BP 121/61
[2021-04-04] MEDS ORDERED: VANCOMYCIN 1GM/250ML 250 ML IV ONE (13:00)
[2021-04-04] MEDS: MEROPENEM 1GM IVPB 100 ML IV SCH ×2 (14:00→22:23)
[2021-04-04 17:00] VITALS: BP 115/61
[2021-04-04] MEDS: TAMSULOSIN HYDROCHLORIDE 0.4 MG CAP PO SCH (18:18)
[2021-04-04] MEDS: VANCOMYCIN 1GM/250ML 250 ML IV SCH (21:11)
[2021-04-04 22:00] VITALS: BP 106/57
[2021-04-04] MEDS: ATORVASTATIN 20 MG TAB PO SCH (22:01)
[2021-04-05 05:00] VITALS: BP 109/60
[2021-04-05 05:23] LABS: Hematocrit 55.9 % (41.0-53.0); Mean Corpuscular Hemoglobin 28.7 pg (28.0-32.0); Mean Corpuscular Hgb Conc. 32.3 g/dL (32.0-36.0); Red Blood Cells 6.28 10^6/uL (4.5-5.90)
[2021-04-05] MEDS: VANCOMYCIN 1GM/250ML 250 ML IV SCH ×3 (05:24→23:33)
[2021-04-05 05:35] LABS: White Blood Cell 32.1 10^3/uL (4.4-10.8)
[2021-04-05 05:37] LABS: Basophils % (manual) 0 (0.0-2.0); Blast Cells 0; Eosinophils % (manual) 0 (0-7); Metamyelocytes % 0; Myelocytes % 0; Promyelocytes % 0; Reactive Lymphocytes 0
[2021-04-05 05:51] LABS: Calcium 8.8 mg/dL (8.5-10.1); Potassium 4.7 mmol/L (3.5-5.1)
[2021-04-05 05:54] LABS: Albumin 2.2 g/dL (3.4-5.0); BUN/Creatinine Ratio 28.2
[2021-04-05 05:57] LABS: Bilirubin, Total 1.6 mg/dL (0.2-1.0); Total Protein 7.6 g/dL (6.4-8.2)
[2021-04-05] MEDS: InsuLIN REG 1unit/0.01ml Soln (100units/ml) SC SCH ×5 (06:00→23:34)
[2021-04-05] MEDS: MEROPENEM 1GM IVPB 100 ML IV SCH ×4 (06:29→23:59)
[2021-04-05] MEDS: FUROSEMIDE 20 MG/2 ML VIAL IV SCH ×2 (06:29→18:09)
[2021-04-05] MEDS: ACCU-CHEK COMFORT CURVE STRIP VI SCH ×5 (06:29→23:34)
[2021-04-05] MEDS: IPRATROPIUM BROM 0.5 MG/2.5ML INH SOL NEB SCH ×3 (07:11→18:31)
[2021-04-05] MEDS: ALBUTEROL SULF 2.5 MG/0.5ML(0.5%) NEB SOLN NEB SCH ×3 (07:11→18:31)
[2021-04-05] MEDS: CARVEDILOL 12.5 MG TAB PO SCH ×2 (08:00→18:00)
[2021-04-05 08:26] LABS: Band Neutrophils % (manual) 3; Lymphocytes % (manual) 3 (10.0-50.0); Monocytes % (manual) 1 (0-12)
[2021-04-05 09:00] VITALS: BP 143/78
[2021-04-05] MEDS: methylPREDNISolone SOD SUCC 40 MG/ML VL IV SCH ×2 (09:57→23:26)
[2021-04-05] MEDS: PANTOPRAZOLE 40 MG/10 ML VIAL INJ IV SCH (09:57)
[2021-04-05] MEDS: LISINOPRIL 20 MG TAB PO SCH (10:00)
[2021-04-05] MEDS: SPIRONOLACTONE 25 MG TAB PO SCH (10:00)
[2021-04-05] MEDS: TAMSULOSIN HYDROCHLORIDE 0.4 MG CAP PO SCH (18:00)
[2021-04-05] MEDS: ATORVASTATIN 20 MG TAB PO SCH (22:00)
[2021-04-05 22:08] VITALS: BP 137/77
[2021-04-06 05:17] LABS: Hemoglobin 18.9 g/dL (13.5-17.5); Mean Corpuscular Hemoglobin 29.5 pg (28.0-32.0); Mean Corpuscular Hgb Conc. 33.3 g/dL (32.0-36.0); Mean Corpuscular Volume 88.4 fL (80.0-100.0); Red Blood Cells 6.42 10^6/uL (4.5-5.90); White Blood Cell 27.3 10^3/uL (4.4-10.8)
[2021-04-06 05:19] LABS: Hematocrit 56.8 % (41.0-53.0)
[2021-04-06 05:20] LABS: Basophils % (manual) 0 (0.0-2.0); Blast Cells 0; Eosinophils % (manual) 0 (0-7); Metamyelocytes % 0; Myelocytes % 0; Promyelocytes % 0
[2021-04-06 05:31] LABS: Albumin 2.2 g/dL (3.4-5.0); BUN/Creatinine Ratio 35.4; Calcium 8.6 mg/dL (8.5-10.1); Potassium 4.7 mmol/L (3.5-5.1)
[2021-04-06 05:34] LABS: Bilirubin, Total 1.6 mg/dL (0.2-1.0); Total Protein 7.4 g/dL (6.4-8.2)
[2021-04-06 05:47] VITALS: BP 116/76
[2021-04-06] MEDS: FUROSEMIDE 20 MG/2 ML VIAL IV SCH ×2 (05:58→17:55)
[2021-04-06] MEDS: ACCU-CHEK COMFORT CURVE STRIP VI SCH ×3 (05:58→17:55)
[2021-04-06] MEDS: InsuLIN REG 1unit/0.01ml Soln (100units/ml) SC SCH ×3 (05:59→18:00)
[2021-04-06] MEDS: MEROPENEM 1GM IVPB 100 ML IV SCH ×3 (06:00→22:47)
[2021-04-06] MEDS: IPRATROPIUM BROM 0.5 MG/2.5ML INH SOL NEB SCH ×3 (06:11→18:42)
[2021-04-06] MEDS: ALBUTEROL SULF 2.5 MG/0.5ML(0.5%) NEB SOLN NEB SCH ×3 (06:11→18:41)
[2021-04-06 06:59] LABS: Band Neutrophils % (manual) 4; Lymphocytes % (manual) 7 (10.0-50.0); Monocytes % (manual) 3 (0-12); Reactive Lymphocytes 1
[2021-04-06 08:00] VITALS: BP 138/77
[2021-04-06] MEDS: LISINOPRIL 20 MG TAB PO SCH (09:35)
[2021-04-06] MEDS: SPIRONOLACTONE 25 MG TAB PO SCH (09:36)
[2021-04-06] MEDS: CARVEDILOL 12.5 MG TAB PO SCH ×2 (09:36→17:54)
[2021-04-06] MEDS: methylPREDNISolone SOD SUCC 40 MG/ML VL IV SCH ×2 (09:37→22:05)
[2021-04-06] MEDS: PANTOPRAZOLE 40 MG/10 ML VIAL INJ IV SCH (09:37)
[2021-04-06] MEDS: VANCOMYCIN 1GM/250ML 250 ML IV SCH ×2 (09:37→20:24)
[2021-04-06 13:00] VITALS: BP 118/66
[2021-04-06 17:00] VITALS: BP 134/60
[2021-04-06] MEDS: TAMSULOSIN HYDROCHLORIDE 0.4 MG CAP PO SCH (17:54)
[2021-04-06] MEDS: ATORVASTATIN 20 MG TAB PO SCH (22:06)
[2021-04-06 22:15] VITALS: BP 101/54
[2021-04-07] VITALS (27 sets, daily range): BP systolic 90–154; BP diastolic 45–75
[2021-04-07] MEDS: InsuLIN REG 1unit/0.01ml Soln (100units/ml) SC SCH ×4 (00:33→17:26)
[2021-04-07 04:52] LABS: Hematocrit 53.5 % (41.0-53.0); Hemoglobin 17.6 g/dL (13.5-17.5); Mean Corpuscular Hemoglobin 29.1 pg (28.0-32.0); Mean Corpuscular Hgb Conc. 32.9 g/dL (32.0-36.0); Mean Corpuscular Volume 88.3 fL (80.0-100.0); Red Blood Cells 6.06 10^6/uL (4.5-5.90); Red Cell Distribution Width 17.7 % (11.8-14.3); White Blood Cell 28.3 10^3/uL (4.4-10.8)
[2021-04-07] MEDS: ACCU-CHEK COMFORT CURVE STRIP VI SCH ×4 (05:19→17:35)
[2021-04-07] MEDS: VANCOMYCIN 1GM/250ML 250 ML IV SCH ×2 (05:20→17:08)
[2021-04-07] MEDS: FUROSEMIDE 20 MG/2 ML VIAL IV SCH ×2 (05:20→17:25)
[2021-04-07 05:25] LABS: BUN/Creatinine Ratio 34.7; Calcium 8.5 mg/dL (8.5-10.1); Potassium 4.5 mmol/L (3.5-5.1)
[2021-04-07 05:40] LABS: Basophils % (manual) 0 (0.0-2.0); Blast Cells 0; Eosinophils % (manual) 0 (0-7); Metamyelocytes % 0; Myelocytes % 0; Promyelocytes % 0; Reactive Lymphocytes 0
[2021-04-07] MEDS: IPRATROPIUM BROM 0.5 MG/2.5ML INH SOL NEB SCH ×3 (06:07→18:18)
[2021-04-07] MEDS: ALBUTEROL SULF 2.5 MG/0.5ML(0.5%) NEB SOLN NEB SCH ×3 (06:07→18:18)
[2021-04-07] MEDS: MEROPENEM 1GM IVPB 100 ML IV SCH ×3 (06:59→23:00)
[2021-04-07] MEDS: CARVEDILOL 12.5 MG TAB PO SCH ×2 (08:00→17:26)
[2021-04-07 09:15] LABS: Band Neutrophils % (manual) 3; Lymphocytes % (manual) 8 (10.0-50.0); Monocytes % (manual) 2 (0-12)
[2021-04-07] MEDS: PANTOPRAZOLE 40 MG/10 ML VIAL INJ IV SCH (10:24)
[2021-04-07] MEDS: SPIRONOLACTONE 25 MG TAB PO SCH (10:25)
[2021-04-07] MEDS: LISINOPRIL 20 MG TAB PO SCH (10:25)
[2021-04-07] MEDS: methylPREDNISolone SOD SUCC 40 MG/ML VL IV SCH ×2 (10:25→22:00)
[2021-04-07] MEDS: MORPHINE SULFATE INJECTION 2 MG/ML SYRG IV PRN (12:51)
[2021-04-07] MEDS: TAMSULOSIN HYDROCHLORIDE 0.4 MG CAP PO SCH (17:26)
[2021-04-07] MEDS: ATORVASTATIN 20 MG TAB PO SCH (22:00)
[2021-04-08] VITALS (28 sets, daily range): BP systolic 94–161; BP diastolic 55–72
[2021-04-08] MEDS: ACCU-CHEK COMFORT CURVE STRIP VI SCH ×5 (00:06→23:30)
[2021-04-08] MEDS: InsuLIN REG 1unit/0.01ml Soln (100units/ml) SC SCH ×5 (00:07→23:31)
[2021-04-08] MEDS: VANCOMYCIN 1GM/250ML 250 ML IV SCH ×3 (02:00→21:54)
[2021-04-08 05:07] LABS: Hematocrit 52.4 % (41.0-53.0); Hemoglobin 17.2 g/dL (13.5-17.5); Mean Corpuscular Hemoglobin 28.8 pg (28.0-32.0); Mean Corpuscular Hgb Conc. 32.8 g/dL (32.0-36.0); Red Blood Cells 5.96 10^6/uL (4.5-5.90); Red Cell Distribution Width 17.6 % (11.8-14.3); White Blood Cell 29.8 10^3/uL (4.4-10.8)
[2021-04-08 05:17] LABS: Basophils % (manual) 0 (0.0-2.0); Blast Cells 0; Eosinophils % (manual) 0 (0-7); Metamyelocytes % 0; Myelocytes % 0; Promyelocytes % 0; Reactive Lymphocytes 0
[2021-04-08 05:20] LABS: Calcium 8.2 mg/dL (8.5-10.1); Potassium 4.5 mmol/L (3.5-5.1)
[2021-04-08 05:23] LABS: BUN/Creatinine Ratio 42.4
[2021-04-08] MEDS: IPRATROPIUM BROM 0.5 MG/2.5ML INH SOL NEB SCH ×3 (06:06→18:21)
[2021-04-08] MEDS: ALBUTEROL SULF 2.5 MG/0.5ML(0.5%) NEB SOLN NEB SCH ×3 (06:06→18:21)
[2021-04-08] MEDS: FUROSEMIDE 20 MG/2 ML VIAL IV SCH ×2 (06:09→17:37)
[2021-04-08] MEDS: MEROPENEM 1GM IVPB 100 ML IV SCH ×3 (06:09→23:03)
[2021-04-08 06:55] LABS: Band Neutrophils % (manual) 6; Lymphocytes % (manual) 2 (10.0-50.0); Monocytes % (manual) 5 (0-12)
[2021-04-08] MEDS: CARVEDILOL 12.5 MG TAB PO SCH ×2 (08:00→17:36)
[2021-04-08] MEDS ORDERED: diphenhdrAMINE HCL 50 MG/1 ML VL ONE (09:11)
[2021-04-08] MEDS ORDERED: fentaNYL CITRATE 100 MCG/2 ML VL ONE (09:11)
[2021-04-08] MEDS ORDERED: MIDAZOLAM HCL 5 MG/ML-1ML VIAL ONE (09:11)
[2021-04-08] MEDS: SPIRONOLACTONE 25 MG TAB PO SCH (10:00)
[2021-04-08] MEDS: LISINOPRIL 20 MG TAB PO SCH (10:00)
[2021-04-08] MEDS: PANTOPRAZOLE 40 MG/10 ML VIAL INJ IV SCH (10:03)
[2021-04-08] MEDS: methylPREDNISolone SOD SUCC 40 MG/ML VL IV SCH ×2 (10:03→21:54)
[2021-04-08] MEDS ORDERED: GLYCOPYRROLATE 0.2 MG/ML 1ML VIAL ONE (13:12)
[2021-04-08] MEDS ORDERED: LIDOCAINE 2% JELLY 11ml (GLYDO) ONE (13:23)
[2021-04-08] MEDS ORDERED: ROCURONIUM 10MG/ML 10ML VIAL IV ONE (13:23)
[2021-04-08] MEDS ORDERED: ETOMIDATE (2MG/ML) 20ML VIAL IV ONE (13:23)
[2021-04-08] MEDS: TAMSULOSIN HYDROCHLORIDE 0.4 MG CAP PO SCH (17:36)
[2021-04-08] MEDS: ACETYLCYSTEINE 10 %(100MG/ML) SOL 4ML NEB SCH (18:21)
[2021-04-08] MEDS: MORPHINE SULFATE INJECTION 2 MG/ML SYRG IV PRN ×2 (18:45→22:42)
[2021-04-08] MEDS: ATORVASTATIN 20 MG TAB PO SCH (21:54)
[2021-04-09 05:00] VITALS: BP 123/71
[2021-04-09] MEDS: ACCU-CHEK COMFORT CURVE STRIP VI SCH ×3 (05:48→18:13)
[2021-04-09] MEDS: FUROSEMIDE 20 MG/2 ML VIAL IV SCH ×2 (05:48→17:51)
[2021-04-09] MEDS: MEROPENEM 1GM IVPB 100 ML IV SCH ×3 (05:48→22:18)
[2021-04-09] MEDS: InsuLIN REG 1unit/0.01ml Soln (100units/ml) SC SCH ×3 (05:50→18:00)
[2021-04-09] MEDS: ACETYLCYSTEINE 10 %(100MG/ML) SOL 4ML NEB SCH ×3 (07:40→18:00)
[2021-04-09] MEDS: ALBUTEROL SULF 2.5 MG/0.5ML(0.5%) NEB SOLN NEB SCH ×3 (07:40→19:05)
[2021-04-09] MEDS: IPRATROPIUM BROM 0.5 MG/2.5ML INH SOL NEB SCH ×3 (07:40→19:05)
[2021-04-09] MEDS: VANCOMYCIN 1GM/250ML 250 ML IV SCH ×2 (08:46→17:47)
[2021-04-09] MEDS: CARVEDILOL 12.5 MG TAB PO SCH ×2 (08:47→17:50)
[2021-04-09 09:00] VITALS: BP 126/66
[2021-04-09] MEDS: PANTOPRAZOLE 40 MG/10 ML VIAL INJ IV SCH (09:38)
[2021-04-09] MEDS: SPIRONOLACTONE 25 MG TAB PO SCH (09:38)
[2021-04-09] MEDS: methylPREDNISolone SOD SUCC 40 MG/ML VL IV SCH ×2 (09:38→22:18)
[2021-04-09] MEDS: LISINOPRIL 20 MG TAB PO SCH (09:39)
[2021-04-09] MEDS: ONDANSETRON HCL 4 MG/2 ML VIAL IV PRN (11:28)
[2021-04-09] MEDS: MORPHINE SULFATE INJECTION 2 MG/ML SYRG IV PRN (11:28)
[2021-04-09 16:00] VITALS: BP 103/64
[2021-04-09] MEDS: TAMSULOSIN HYDROCHLORIDE 0.4 MG CAP PO SCH (17:47)
[2021-04-09 20:00] VITALS: BP 90/67
[2021-04-09] MEDS: ATORVASTATIN 20 MG TAB PO SCH (22:18)
[2021-04-10] MEDS: IPRATROPIUM BROM 0.5 MG/2.5ML INH SOL NEB SCH ×4 (00:21→19:28)
[2021-04-10] MEDS: ALBUTEROL SULF 2.5 MG/0.5ML(0.5%) NEB SOLN NEB SCH ×4 (00:22→19:28)
[2021-04-10] MEDS: ACETYLCYSTEINE 10 %(100MG/ML) SOL 4ML NEB SCH ×4 (00:24→19:28)
[2021-04-10] MEDS: InsuLIN REG 1unit/0.01ml Soln (100units/ml) SC SCH ×4 (00:59→17:26)
[2021-04-10] MEDS: VANCOMYCIN 1GM/250ML 250 ML IV SCH ×2 (03:55→14:33)
[2021-04-10] MEDS: MEROPENEM 1GM IVPB 100 ML IV SCH ×3 (06:09→22:21)
[2021-04-10] MEDS: ACCU-CHEK COMFORT CURVE STRIP VI SCH ×4 (06:09→17:25)
[2021-04-10] MEDS: FUROSEMIDE 20 MG/2 ML VIAL IV SCH ×2 (06:10→17:24)
[2021-04-10 06:32] LABS: Hematocrit 52.9 % (41.0-53.0); Hemoglobin 17.2 g/dL (13.5-17.5); Mean Corpuscular Hemoglobin 28.8 pg (28.0-32.0); Mean Corpuscular Hgb Conc. 32.6 g/dL (32.0-36.0); Mean Corpuscular Volume 88.6 fL (80.0-100.0); Red Blood Cells 5.98 10^6/uL (4.5-5.90); Red Cell Distribution Width 17.5 % (11.8-14.3); White Blood Cell 25.8 10^3/uL (4.4-10.8)
[2021-04-10 07:53] LABS: Basophils % (manual) 0 (0.0-2.0); Blast Cells 0; Eosinophils % (manual) 0 (0-7); Myelocytes % 0; Promyelocytes % 0; Reactive Lymphocytes 0
[2021-04-10] MEDS: CARVEDILOL 12.5 MG TAB PO SCH ×2 (08:00→17:25)
[2021-04-10 09:30] VITALS: BP 85/52
[2021-04-10] MEDS: LISINOPRIL 20 MG TAB PO SCH (10:00)
[2021-04-10] MEDS: SPIRONOLACTONE 25 MG TAB PO SCH (10:00)
[2021-04-10] MEDS: PANTOPRAZOLE 40 MG/10 ML VIAL INJ IV SCH (11:21)
[2021-04-10] MEDS: methylPREDNISolone SOD SUCC 40 MG/ML VL IV SCH ×2 (11:21→22:22)
[2021-04-10] MEDS ORDERED: SODIUM CHLORIDE 0.9% 1,000 ML IV ONE (12:30)
[2021-04-10 13:00] VITALS: BP 152/83
[2021-04-10 14:31] LABS: Band Neutrophils % (manual) 2; Lymphocytes % (manual) 3 (10.0-50.0); Metamyelocytes % 1; Monocytes % (manual) 4 (0-12)
[2021-04-10 15:30] VITALS: BP 110/76
[2021-04-10] MEDS: TAMSULOSIN HYDROCHLORIDE 0.4 MG CAP PO SCH (17:25)
[2021-04-10 22:00] VITALS: BP 89/57
[2021-04-10] MEDS: ATORVASTATIN 20 MG TAB PO SCH (22:22)
[2021-04-11] MEDS: ACCU-CHEK COMFORT CURVE STRIP VI SCH ×4 (00:04→17:32)
[2021-04-11] MEDS: InsuLIN REG 1unit/0.01ml Soln (100units/ml) SC SCH ×4 (00:05→17:54)
[2021-04-11] MEDS: MORPHINE SULFATE INJECTION 2 MG/ML SYRG IV PRN ×2 (00:12→05:55)
[2021-04-11] MEDS: ONDANSETRON HCL 4 MG/2 ML VIAL IV PRN (00:12)
[2021-04-11] MEDS: VANCOMYCIN 1GM/250ML 250 ML IV SCH ×3 (01:19→20:04)
[2021-04-11 05:00] VITALS: BP 128/64
[2021-04-11] MEDS: FUROSEMIDE 20 MG/2 ML VIAL IV SCH ×2 (05:45→17:31)
[2021-04-11] MEDS: ALBUTEROL SULF 2.5 MG/0.5ML(0.5%) NEB SOLN NEB SCH ×3 (06:35→20:16)
[2021-04-11] MEDS: IPRATROPIUM BROM 0.5 MG/2.5ML INH SOL NEB SCH ×3 (06:35→20:16)
[2021-04-11] MEDS: ACETYLCYSTEINE 10 %(100MG/ML) SOL 4ML NEB SCH ×3 (06:35→20:16)
[2021-04-11] MEDS: MEROPENEM 1GM IVPB 100 ML IV SCH ×3 (06:59→22:57)
[2021-04-11] MEDS: CARVEDILOL 12.5 MG TAB PO SCH ×2 (07:40→17:32)
[2021-04-11 09:00] VITALS: BP 134/69
[2021-04-11] MEDS: PANTOPRAZOLE 40 MG/10 ML VIAL INJ IV SCH (10:03)
[2021-04-11] MEDS: methylPREDNISolone SOD SUCC 40 MG/ML VL IV SCH (10:03)
[2021-04-11] MEDS: SPIRONOLACTONE 25 MG TAB PO SCH (10:04)
[2021-04-11] MEDS: LISINOPRIL 20 MG TAB PO SCH (10:04)
[2021-04-11 13:00] VITALS: BP 146/73
[2021-04-11] MEDS: TAMSULOSIN HYDROCHLORIDE 0.4 MG CAP PO SCH (17:32)
[2021-04-11] MEDS: ATORVASTATIN 20 MG TAB PO SCH (21:53)
[2021-04-11 22:00] VITALS: BP 121/67
[2021-04-12] MEDS: ACCU-CHEK COMFORT CURVE STRIP VI SCH ×5 (00:03→23:57)
[2021-04-12] MEDS: InsuLIN REG 1unit/0.01ml Soln (100units/ml) SC SCH ×5 (00:06→23:59)
[2021-04-12 05:00] VITALS: BP 103/58
[2021-04-12] MEDS: FUROSEMIDE 20 MG/2 ML VIAL IV SCH ×2 (05:54→18:00)
[2021-04-12] MEDS: VANCOMYCIN 1GM/250ML 250 ML IV SCH ×2 (06:27→18:00)
[2021-04-12] MEDS: MEROPENEM 1GM IVPB 100 ML IV SCH ×3 (07:15→23:04)
[2021-04-12] MEDS: ALBUTEROL SULF 2.5 MG/0.5ML(0.5%) NEB SOLN NEB SCH ×3 (07:18→19:55)
[2021-04-12] MEDS: IPRATROPIUM BROM 0.5 MG/2.5ML INH SOL NEB SCH ×3 (07:18→19:55)
[2021-04-12] MEDS: ACETYLCYSTEINE 10 %(100MG/ML) SOL 4ML NEB SCH ×3 (07:55→19:55)
[2021-04-12] MEDS: CARVEDILOL 12.5 MG TAB PO SCH ×2 (08:00→18:00)
[2021-04-12 09:00] VITALS: BP 87/56
[2021-04-12] MEDS: PANTOPRAZOLE 40 MG/10 ML VIAL INJ IV SCH (10:00)
[2021-04-12] MEDS: LISINOPRIL 20 MG TAB PO SCH (10:00)
[2021-04-12] MEDS: SPIRONOLACTONE 25 MG TAB PO SCH (10:00)
[2021-04-12] MEDS: MORPHINE SULFATE INJECTION 2 MG/ML SYRG IV PRN ×2 (11:25→20:41)
[2021-04-12 13:00] VITALS: BP 90/54
[2021-04-12 17:00] VITALS: BP 96/60
[2021-04-12] MEDS: TAMSULOSIN HYDROCHLORIDE 0.4 MG CAP PO SCH (18:02)
[2021-04-12 22:00] VITALS: BP 98/60
[2021-04-12] MEDS: ATORVASTATIN 20 MG TAB PO SCH (22:02)
[2021-04-13 05:00] VITALS: BP 119/68
[2021-04-13 05:38] LABS: Basophils # (auto) 0 10 ^3/uL (0-0.2); Basophils % (auto) 0.2 % (0.0-2.0); Eosinophils # (auto) 0.1 10 ^3/uL (0-0.8); Eosinophils % (auto) 0.4 % (0.0-7.0); Hematocrit 48.7 % (41.0-53.0); Hemoglobin 16.6 g/dL (13.5-17.5); Lymphocytes # (auto) 2.7 10 ^3/uL (0.4-5.4); Lymphocytes % (auto) 10.8 % (10.0-50.0); Mean Corpuscular Hemoglobin 29.4 pg (28.0-32.0); Mean Corpuscular Hgb Conc. 34.1 g/dL (32.0-36.0); Mean Corpuscular Volume 86.3 fL (80.0-100.0); Monocytes # (auto) 1.2 10 ^3/uL (0-1.3); Monocytes % (auto) 4.8 % (0.0-12.0); Neutrophils # (auto) 21.1 10 ^3/uL (1.6-8.6); Neutrophils % (auto) 83.8 % (37.0-80.0); Nucleated Red Blood Cells % 0.1 %; Red Blood Cells 5.64 10^6/uL (4.5-5.90); Red Cell Distribution Width 17.3 % (11.8-14.3); White Blood Cell 25.1 10^3/uL (4.4-10.8)
[2021-04-13] MEDS: ACETYLCYSTEINE 10 %(100MG/ML) SOL 4ML NEB SCH ×3 (06:00→18:51)
[2021-04-13] MEDS: InsuLIN REG 1unit/0.01ml Soln (100units/ml) SC SCH ×4 (06:00→23:31)
[2021-04-13] MEDS: FUROSEMIDE 20 MG/2 ML VIAL IV SCH ×2 (06:10→18:00)
[2021-04-13] MEDS: ACCU-CHEK COMFORT CURVE STRIP VI SCH ×4 (06:11→23:28)
[2021-04-13] MEDS: IPRATROPIUM BROM 0.5 MG/2.5ML INH SOL NEB SCH ×2 (06:22→18:51)
[2021-04-13] MEDS: ALBUTEROL SULF 2.5 MG/0.5ML(0.5%) NEB SOLN NEB SCH ×2 (06:22→18:51)
[2021-04-13] MEDS: VANCOMYCIN 1GM/250ML 250 ML IV SCH ×2 (06:23→18:00)
[2021-04-13] MEDS: MORPHINE SULFATE INJECTION 2 MG/ML SYRG IV PRN (06:24)
[2021-04-13 06:26] LABS: Albumin 1.6 g/dL (3.4-5.0); Potassium 4.4 mmol/L (3.5-5.1)
[2021-04-13 06:29] LABS: BUN/Creatinine Ratio 39.3; Bilirubin, Total 1.5 mg/dL (0.2-1.0); Total Protein 5.7 g/dL (6.4-8.2)
[2021-04-13] MEDS: MEROPENEM 1GM IVPB 100 ML IV SCH ×3 (07:07→22:54)
[2021-04-13] MEDS: CARVEDILOL 12.5 MG TAB PO SCH ×2 (08:42→18:01)
[2021-04-13 08:57] VITALS: BP 129/62
[2021-04-13] MEDS: SPIRONOLACTONE 25 MG TAB PO SCH (10:19)
[2021-04-13] MEDS: PANTOPRAZOLE 40 MG/10 ML VIAL INJ IV SCH (10:19)
[2021-04-13] MEDS: LISINOPRIL 20 MG TAB PO SCH (10:20)
[2021-04-13 12:42] VITALS: BP 125/67
[2021-04-13 16:20] VITALS: BP 130/68
[2021-04-13] MEDS: TAMSULOSIN HYDROCHLORIDE 0.4 MG CAP PO SCH (18:01)
[2021-04-13 22:00] VITALS: BP 113/72
[2021-04-13] MEDS: ATORVASTATIN 20 MG TAB PO SCH (22:54)
[2021-04-14] VITALS (8 sets, daily range): BP systolic 68–107; BP diastolic 35–62
[2021-04-14] MEDS: ACCU-CHEK COMFORT CURVE STRIP VI SCH ×4 (05:06→23:34)
[2021-04-14] MEDS: InsuLIN REG 1unit/0.01ml Soln (100units/ml) SC SCH ×4 (05:09→23:34)
[2021-04-14] MEDS: VANCOMYCIN 1GM/250ML 250 ML IV SCH ×2 (05:51→19:20)
[2021-04-14] MEDS: FUROSEMIDE 20 MG/2 ML VIAL IV SCH ×2 (05:51→18:00)
[2021-04-14] MEDS: IPRATROPIUM BROM 0.5 MG/2.5ML INH SOL NEB SCH ×3 (07:19→18:39)
[2021-04-14] MEDS: ACETYLCYSTEINE 10 %(100MG/ML) SOL 4ML NEB SCH ×3 (07:19→18:39)
[2021-04-14] MEDS: ALBUTEROL SULF 2.5 MG/0.5ML(0.5%) NEB SOLN NEB SCH ×3 (07:19→18:39)
[2021-04-14] MEDS: MEROPENEM 1GM IVPB 100 ML IV SCH ×3 (07:21→23:26)
[2021-04-14] MEDS: CARVEDILOL 12.5 MG TAB PO SCH ×2 (08:00→18:00)
[2021-04-14] MEDS: LISINOPRIL 20 MG TAB PO SCH (10:00)
[2021-04-14] MEDS: SPIRONOLACTONE 25 MG TAB PO SCH (10:03)
[2021-04-14] MEDS: PANTOPRAZOLE 40 MG/10 ML VIAL INJ IV SCH (10:03)
[2021-04-14] MEDS: SODIUM CHLORIDE 0.9% 1,000 ML IV SCH ×2 (12:48→19:21)
[2021-04-14] MEDS: TAMSULOSIN HYDROCHLORIDE 0.4 MG CAP PO SCH (19:37)
[2021-04-14] MEDS: ATORVASTATIN 20 MG TAB PO SCH (20:40)
[2021-04-14] MEDS ORDERED: ALBUMIN 5% 250 ML IV ONE (22:00)
[2021-04-14] MEDS ORDERED: NOREPINEPHRINE 8 MG/250ML KIT 250 ML IV ONE (23:58)
[2021-04-15] VITALS (84 sets, daily range): BP systolic 74–129; BP diastolic 32–103
[2021-04-15 01:17] LABS: Basophils # (auto) 0 10 ^3/uL (0-0.2); Basophils % (auto) 0.1 % (0.0-2.0); Eosinophils # (auto) 0.1 10 ^3/uL (0-0.8); Eosinophils % (auto) 0.3 % (0.0-7.0); Hematocrit 44.9 % (41.0-53.0); Hemoglobin 15.1 g/dL (13.5-17.5); Lymphocytes # (auto) 2.2 10 ^3/uL (0.4-5.4); Lymphocytes % (auto) 10.9 % (10.0-50.0); Mean Corpuscular Hemoglobin 29.6 pg (28.0-32.0); Mean Corpuscular Hgb Conc. 33.7 g/dL (32.0-36.0); Monocytes # (auto) 0.9 10 ^3/uL (0-1.3); Monocytes % (auto) 4.6 % (0.0-12.0); Neutrophils % (auto) 84.1 % (37.0-80.0); Nucleated Red Blood Cells % 0.2 %; Red Cell Distribution Width 17.7 % (11.8-14.3); White Blood Cell 20.2 10^3/uL (4.4-10.8)
[2021-04-15 01:28] LABS: Albumin 1.6 g/dL (3.4-5.0); Calcium 7.9 mg/dL (8.5-10.1); Potassium 4.1 mmol/L (3.5-5.1)
[2021-04-15 01:31] LABS: Bilirubin, Total 1.5 mg/dL (0.2-1.0); INR 1.25 (0.9-1.15); Partial Thromboplastin Time 33.9 sec (23.6-33.0); Total Protein 5.4 g/dL (6.4-8.2)
[2021-04-15] MEDS: NOREPINEPHRINE 8 MG/250ML KIT 250 ML IV SCH ×2 (03:01→18:40)
[2021-04-15] MEDS: InsuLIN REG 1unit/0.01ml Soln (100units/ml) SC SCH ×4 (06:57→23:14)
[2021-04-15] MEDS: ACCU-CHEK COMFORT CURVE STRIP VI SCH ×4 (06:57→23:14)
[2021-04-15] MEDS: VANCOMYCIN 1GM/250ML 250 ML IV SCH ×2 (07:02→18:27)
[2021-04-15] MEDS: FUROSEMIDE 20 MG/2 ML VIAL IV SCH (07:41)
[2021-04-15] MEDS: IPRATROPIUM BROM 0.5 MG/2.5ML INH SOL NEB SCH ×4 (07:44→18:27)
[2021-04-15] MEDS: ALBUTEROL SULF 2.5 MG/0.5ML(0.5%) NEB SOLN NEB SCH ×4 (07:44→18:27)
[2021-04-15] MEDS: ACETYLCYSTEINE 10 %(100MG/ML) SOL 4ML NEB SCH ×4 (07:45→18:28)
[2021-04-15] MEDS: CARVEDILOL 12.5 MG TAB PO SCH (08:00)
[2021-04-15] MEDS: MEROPENEM 1GM IVPB 100 ML IV SCH ×3 (08:30→23:08)
[2021-04-15 09:29] LABS: Urine Bacteria FEW /hpf (None Seen); Urine Blood Negative /uL (Negative); Urine Mucus FEW (None Seen); Urine Specific Gravity 1.013 (1.001-1.035); Urine WBC 2 /hpf (0 - 3)
[2021-04-15] MEDS: LISINOPRIL 20 MG TAB PO SCH (10:00)
[2021-04-15] MEDS: PANTOPRAZOLE 40 MG/10 ML VIAL INJ IV SCH (10:46)
[2021-04-15] MEDS: SPIRONOLACTONE 25 MG TAB PO SCH (10:46)
[2021-04-15 16:12] LABS: Cholesterol 86 mg/dL (< 200)
[2021-04-15 16:15] LABS: HDL Cholesterol 18 mg/dL (40-59); LDL Cholesterol 61 mg/dL (< 100); Triglycerides 133 mg/dL (< 150)
[2021-04-15] MEDS: TAMSULOSIN HYDROCHLORIDE 0.4 MG CAP PO SCH (18:28)
[2021-04-15] MEDS: ATORVASTATIN 20 MG TAB PO SCH (19:56)
[2021-04-16] VITALS (90 sets, daily range): BP systolic 79–133; BP diastolic 25–67
[2021-04-16] MEDS: VANCOMYCIN 1GM/250ML 250 ML IV SCH ×2 (05:40→17:57)
[2021-04-16] MEDS: ACCU-CHEK COMFORT CURVE STRIP VI SCH ×4 (05:41→23:49)
[2021-04-16] MEDS: InsuLIN REG 1unit/0.01ml Soln (100units/ml) SC SCH ×4 (05:46→23:54)
[2021-04-16] MEDS: ALBUTEROL SULF 2.5 MG/0.5ML(0.5%) NEB SOLN NEB SCH ×3 (05:57→18:02)
[2021-04-16] MEDS: IPRATROPIUM BROM 0.5 MG/2.5ML INH SOL NEB SCH ×3 (05:57→18:02)
[2021-04-16] MEDS: ACETYLCYSTEINE 10 %(100MG/ML) SOL 4ML NEB SCH ×3 (05:57→18:01)
[2021-04-16] MEDS: MEROPENEM 1GM IVPB 100 ML IV SCH ×3 (06:54→23:10)
[2021-04-16 07:07] LABS: Basophils # (auto) 0.1 10 ^3/uL (0-0.2); Basophils % (auto) 0.7 % (0.0-2.0); Eosinophils # (auto) 0.2 10 ^3/uL (0-0.8); Eosinophils % (auto) 0.8 % (0.0-7.0); Hematocrit 46.9 % (41.0-53.0); Hemoglobin 15.6 g/dL (13.5-17.5); Lymphocytes # (auto) 1.8 10 ^3/uL (0.4-5.4); Lymphocytes % (auto) 9.6 % (10.0-50.0); Mean Corpuscular Hgb Conc. 33.3 g/dL (32.0-36.0); Monocytes % (auto) 5.5 % (0.0-12.0); Neutrophils # (auto) 15.8 10 ^3/uL (1.6-8.6); Neutrophils % (auto) 83.4 % (37.0-80.0); Nucleated Red Blood Cells % 0.1 %; Red Blood Cells 5.39 10^6/uL (4.5-5.90); Red Cell Distribution Width 17.5 % (11.8-14.3); White Blood Cell 18.9 10^3/uL (4.4-10.8)
[2021-04-16 07:12] LABS: Albumin 1.5 g/dL (3.4-5.0); Calcium 7.9 mg/dL (8.5-10.1); Potassium 4.2 mmol/L (3.5-5.1)
[2021-04-16 07:17] LABS: BUN/Creatinine Ratio 26.6; Bilirubin, Total 1.5 mg/dL (0.2-1.0); Total Protein 5.7 g/dL (6.4-8.2)
[2021-04-16] MEDS: PANTOPRAZOLE 40 MG/10 ML VIAL INJ IV SCH (09:58)
[2021-04-16] MEDS: SPIRONOLACTONE 25 MG TAB PO SCH (09:58)
[2021-04-16] MEDS ORDERED: ENOXAPARIN SOD 40 MG/0.4 ML SYRINGE SC SCH ×2 (10:00→22:00)
[2021-04-16] MEDS ORDERED: SODIUM CHLORIDE 0.9% 1,000 ML IV ONE (12:00)
[2021-04-16] MEDS ORDERED: IOHEXOL 300 MG/ML 100ML BOTTLE IJ ONE (14:43)
[2021-04-16] MEDS: TAMSULOSIN HYDROCHLORIDE 0.4 MG CAP PO SCH (17:25)
[2021-04-16] MEDS: ACETAMINOPHEN 500 MG TAB PO PRN (17:39)
[2021-04-16] MEDS: MORPHINE SULFATE INJECTION 2 MG/ML SYRG IV PRN ×2 (18:56→23:10)
[2021-04-16] MEDS: ATORVASTATIN 20 MG TAB PO SCH (21:10)
[2021-04-16] MEDS: ENOXAPARIN SOD 120 MG/0.8 ML SYRINGE SC SCH (22:22)
[2021-04-17] VITALS (83 sets, daily range): BP systolic 82–128; BP diastolic 40–64
[2021-04-17] MEDS: NOREPINEPHRINE 8 MG/250ML KIT 250 ML IV SCH (03:00)
[2021-04-17 04:49] LABS: Basophils # (auto) 0.1 10 ^3/uL (0-0.2); Basophils % (auto) 0.8 % (0.0-2.0); Eosinophils # (auto) 0.3 10 ^3/uL (0-0.8); Eosinophils % (auto) 1.9 % (0.0-7.0); Hematocrit 41.7 % (41.0-53.0); Hemoglobin 13.8 g/dL (13.5-17.5); Lymphocytes # (auto) 1.4 10 ^3/uL (0.4-5.4); Lymphocytes % (auto) 10.8 % (10.0-50.0); Mean Corpuscular Hemoglobin 29.1 pg (28.0-32.0); Mean Corpuscular Hgb Conc. 33.1 g/dL (32.0-36.0); Mean Corpuscular Volume 88.1 fL (80.0-100.0); Monocytes # (auto) 0.8 10 ^3/uL (0-1.3); Neutrophils # (auto) 10.7 10 ^3/uL (1.6-8.6); Neutrophils % (auto) 80.5 % (37.0-80.0); Red Blood Cells 4.74 10^6/uL (4.5-5.90); Red Cell Distribution Width 17.4 % (11.8-14.3); White Blood Cell 13.3 10^3/uL (4.4-10.8)
[2021-04-17 05:06] LABS: Albumin 1.4 g/dL (3.4-5.0); BUN/Creatinine Ratio 19.6; Calcium 7.8 mg/dL (8.5-10.1); Potassium 3.7 mmol/L (3.5-5.1)
[2021-04-17 05:08] LABS: Bilirubin, Total 1.1 mg/dL (0.2-1.0); Total Protein 5.5 g/dL (6.4-8.2)
[2021-04-17] MEDS: VANCOMYCIN 1GM/250ML 250 ML IV SCH (05:46)
[2021-04-17] MEDS: ACCU-CHEK COMFORT CURVE STRIP VI SCH ×3 (05:47→18:00)
[2021-04-17] MEDS: InsuLIN REG 1unit/0.01ml Soln (100units/ml) SC SCH ×3 (05:47→18:00)
[2021-04-17] MEDS: IPRATROPIUM BROM 0.5 MG/2.5ML INH SOL NEB SCH ×3 (06:02→18:22)
[2021-04-17] MEDS: ALBUTEROL SULF 2.5 MG/0.5ML(0.5%) NEB SOLN NEB SCH ×3 (06:02→18:22)
[2021-04-17] MEDS: ACETYLCYSTEINE 10 %(100MG/ML) SOL 4ML NEB SCH ×3 (06:02→18:22)
[2021-04-17] MEDS: MEROPENEM 1GM IVPB 100 ML IV SCH ×2 (07:17→15:54)
[2021-04-17] MEDS: ACETAMINOPHEN 500 MG TAB PO PRN (08:32)
[2021-04-17] MEDS: PANTOPRAZOLE 40 MG/10 ML VIAL INJ IV SCH (10:28)
[2021-04-17] MEDS: MORPHINE SULFATE INJECTION 2 MG/ML SYRG IV PRN ×2 (10:28→18:49)
[2021-04-17] MEDS: ENOXAPARIN SOD 120 MG/0.8 ML SYRINGE SC SCH (10:28)
[2021-04-17] MEDS: SPIRONOLACTONE 25 MG TAB PO SCH (10:28)
[2021-04-17] MEDS: TAMSULOSIN HYDROCHLORIDE 0.4 MG CAP PO SCH (18:00)
[2021-04-18] VITALS (93 sets, daily range): BP systolic 95–134; BP diastolic 43–73
[2021-04-18] MEDS: VANCOMYCIN 1GM/250ML 250 ML IV SCH ×2 (01:11→14:27)
[2021-04-18] MEDS: MEROPENEM 1GM IVPB 100 ML IV SCH ×4 (01:11→23:26)
[2021-04-18] MEDS: ATORVASTATIN 20 MG TAB PO SCH ×2 (01:11→23:26)
[2021-04-18] MEDS: InsuLIN REG 1unit/0.01ml Soln (100units/ml) SC SCH ×5 (01:12→23:37)
[2021-04-18] MEDS: NOREPINEPHRINE 8 MG/250ML KIT 250 ML IV SCH ×2 (01:13→20:00)
[2021-04-18] MEDS: MORPHINE SULFATE INJECTION 2 MG/ML SYRG IV PRN ×2 (03:05→21:00)
[2021-04-18 04:45] LABS: Alanine Aminotransferase 44 U/L (16-61); Albumin 1.4 g/dL (3.4-5.0); Anion Gap 4 (5-15); Aspartate Aminotransferase 46 U/L (15-37); BUN/Creatinine Ratio 13.1; Blood Urea Nitrogen 8 mg/dL (7-18); Calcium 7.6 mg/dL (8.5-10.1); Carbon Dioxide 31 mmol/L (21-32); Chloride 97 mmol/L (98-107); GFR African American 173 mL/min; GFR Non-African American 143 mL/min; Glucose 103 mg/dL (74-106); Potassium 4.3 mmol/L (3.5-5.1); Sodium 132 mmol/L (136-145)
[2021-04-18 04:48] LABS: Alkaline Phosphatase 117 U/L (45-117); Bilirubin, Total 0.9 mg/dL (0.2-1.0); Total Protein 5.3 g/dL (6.4-8.2)
[2021-04-18 05:33] LABS: Basophils # (auto) 0.1 10 ^3/uL (0-0.2); Basophils % (auto) 1.1 % (0.0-2.0); Eosinophils # (auto) 0.2 10 ^3/uL (0-0.8); Eosinophils % (auto) 2.5 % (0.0-7.0); Hematocrit 40.6 % (41.0-53.0); Hemoglobin 13.7 g/dL (13.5-17.5); Lymphocytes # (auto) 1.3 10 ^3/uL (0.4-5.4); Lymphocytes % (auto) 14.2 % (10.0-50.0); Mean Corpuscular Hemoglobin 29.6 pg (28.0-32.0); Mean Corpuscular Hgb Conc. 33.7 g/dL (32.0-36.0); Mean Corpuscular Volume 87.7 fL (80.0-100.0); Monocytes # (auto) 0.6 10 ^3/uL (0-1.3); Monocytes % (auto) 6.5 % (0.0-12.0); Neutrophils # (auto) 7.1 10 ^3/uL (1.6-8.6); Neutrophils % (auto) 75.7 % (37.0-80.0); Red Blood Cells 4.63 10^6/uL (4.5-5.90); Red Cell Distribution Width 17.9 % (11.8-14.3); White Blood Cell 9.4 10^3/uL (4.4-10.8)
[2021-04-18] MEDS: IPRATROPIUM BROM 0.5 MG/2.5ML INH SOL NEB SCH ×3 (05:48→17:55)
[2021-04-18] MEDS: ALBUTEROL SULF 2.5 MG/0.5ML(0.5%) NEB SOLN NEB SCH ×3 (05:48→17:55)
[2021-04-18] MEDS: ACETYLCYSTEINE 10 %(100MG/ML) SOL 4ML NEB SCH ×3 (05:49→17:55)
[2021-04-18] MEDS: ACCU-CHEK COMFORT CURVE STRIP VI SCH ×5 (06:27→23:37)
[2021-04-18] MEDS: PANTOPRAZOLE 40 MG/10 ML VIAL INJ IV SCH (10:28)
[2021-04-18] MEDS: SPIRONOLACTONE 25 MG TAB PO SCH (10:28)
[2021-04-18] MEDS: GABAPENTIN 100 MG CAP PO SCH ×2 (16:08→23:26)
[2021-04-18] MEDS: TAMSULOSIN HYDROCHLORIDE 0.4 MG CAP PO SCH (18:07)
[2021-04-19] VITALS (91 sets, daily range): BP systolic 90–125; BP diastolic 41–68
[2021-04-19 05:15] LABS: Basophils # (auto) 0 10 ^3/uL (0-0.2); Basophils % (auto) 0.6 % (0.0-2.0); Eosinophils # (auto) 0.1 10 ^3/uL (0-0.8); Eosinophils % (auto) 1.7 % (0.0-7.0); Hematocrit 37.5 % (41.0-53.0); Hemoglobin 12.5 g/dL (13.5-17.5); Lymphocytes % (auto) 11.8 % (10.0-50.0); Mean Corpuscular Hemoglobin 29.2 pg (28.0-32.0); Mean Corpuscular Hgb Conc. 33.4 g/dL (32.0-36.0); Mean Corpuscular Volume 87.4 fL (80.0-100.0); Monocytes # (auto) 0.6 10 ^3/uL (0-1.3); Neutrophils # (auto) 6.7 10 ^3/uL (1.6-8.6); Neutrophils % (auto) 78.9 % (37.0-80.0); Nucleated Red Blood Cells % 0.1 %; Red Blood Cells 4.29 10^6/uL (4.5-5.90); Red Cell Distribution Width 17.5 % (11.8-14.3); White Blood Cell 8.5 10^3/uL (4.4-10.8)
[2021-04-19 05:30] LABS: INR 1.22 (0.9-1.15); Partial Thromboplastin Time 30.8 sec (23.6-33.0)
[2021-04-19 05:51] LABS: Albumin 1.3 g/dL (3.4-5.0); BUN/Creatinine Ratio 12.1; Bilirubin, Total 0.8 mg/dL (0.2-1.0); Total Protein 5.1 g/dL (6.4-8.2)
[2021-04-19] MEDS: VANCOMYCIN 1GM/250ML 250 ML IV SCH ×2 (06:00→22:44)
[2021-04-19] MEDS: InsuLIN REG 1unit/0.01ml Soln (100units/ml) SC SCH ×3 (06:00→18:00)
[2021-04-19] MEDS: GABAPENTIN 100 MG CAP PO SCH ×3 (06:01→22:44)
[2021-04-19] MEDS: ACCU-CHEK COMFORT CURVE STRIP VI SCH ×3 (06:11→18:10)
[2021-04-19] MEDS: MEROPENEM 1GM IVPB 100 ML IV SCH ×3 (07:03→22:44)
[2021-04-19] MEDS: ALBUTEROL SULF 2.5 MG/0.5ML(0.5%) NEB SOLN NEB SCH ×3 (10:02→18:13)
[2021-04-19] MEDS: IPRATROPIUM BROM 0.5 MG/2.5ML INH SOL NEB SCH ×3 (10:02→18:13)
[2021-04-19] MEDS: ACETYLCYSTEINE 10 %(100MG/ML) SOL 4ML NEB SCH ×3 (10:03→18:13)
[2021-04-19] MEDS: PANTOPRAZOLE 40 MG/10 ML VIAL INJ IV SCH (11:02)
[2021-04-19] MEDS: SPIRONOLACTONE 25 MG TAB PO SCH (11:02)
[2021-04-19] MEDS: MORPHINE SULFATE INJECTION 2 MG/ML SYRG IV PRN ×2 (14:28→21:00)
[2021-04-19] MEDS: TAMSULOSIN HYDROCHLORIDE 0.4 MG CAP PO SCH (18:09)
[2021-04-19] MEDS: ATORVASTATIN 20 MG TAB PO SCH (22:44)
[2021-04-20] VITALS (84 sets, daily range): BP systolic 102–131; BP diastolic 42–63
[2021-04-20] MEDS: NOREPINEPHRINE 8 MG/250ML KIT 250 ML IV SCH (03:00)
[2021-04-20] MEDS: ACCU-CHEK COMFORT CURVE STRIP VI SCH ×4 (06:00→19:18)
[2021-04-20] MEDS: InsuLIN REG 1unit/0.01ml Soln (100units/ml) SC SCH ×4 (06:00→18:00)
[2021-04-20] MEDS: IPRATROPIUM BROM 0.5 MG/2.5ML INH SOL NEB SCH ×3 (06:16→18:20)
[2021-04-20] MEDS: ALBUTEROL SULF 2.5 MG/0.5ML(0.5%) NEB SOLN NEB SCH ×3 (06:16→18:20)
[2021-04-20] MEDS: ACETYLCYSTEINE 10 %(100MG/ML) SOL 4ML NEB SCH ×3 (06:17→18:20)
[2021-04-20] MEDS: GABAPENTIN 100 MG CAP PO SCH ×3 (06:37→22:05)
[2021-04-20] MEDS: MEROPENEM 1GM IVPB 100 ML IV SCH ×2 (06:38→17:24)
[2021-04-20 07:07] LABS: Basophils # (auto) 0 10 ^3/uL (0-0.2); Basophils % (auto) 0.3 % (0.0-2.0); Eosinophils # (auto) 0.2 10 ^3/uL (0-0.8); Eosinophils % (auto) 2.7 % (0.0-7.0); Hematocrit 39.2 % (41.0-53.0); Hemoglobin 13.4 g/dL (13.5-17.5); Lymphocytes % (auto) 12.2 % (10.0-50.0); Mean Corpuscular Hemoglobin 29.9 pg (28.0-32.0); Mean Corpuscular Volume 87.9 fL (80.0-100.0); Monocytes # (auto) 0.6 10 ^3/uL (0-1.3); Monocytes % (auto) 6.9 % (0.0-12.0); Neutrophils # (auto) 6.6 10 ^3/uL (1.6-8.6); Neutrophils % (auto) 77.9 % (37.0-80.0); Nucleated Red Blood Cells % 0.1 %; Red Blood Cells 4.46 10^6/uL (4.5-5.90); Red Cell Distribution Width 17.4 % (11.8-14.3); White Blood Cell 8.5 10^3/uL (4.4-10.8)
[2021-04-20 07:18] LABS: Albumin 1.4 g/dL (3.4-5.0); Potassium 4.1 mmol/L (3.5-5.1)
[2021-04-20 07:23] LABS: BUN/Creatinine Ratio 12.5; Bilirubin, Total 0.8 mg/dL (0.2-1.0); Total Protein 5.7 g/dL (6.4-8.2)
[2021-04-20] MEDS: SPIRONOLACTONE 25 MG TAB PO SCH (10:00)
[2021-04-20] MEDS: PANTOPRAZOLE 40 MG/10 ML VIAL INJ IV SCH (10:00)
[2021-04-20] MEDS ORDERED: MORPHINE SULFATE INJECTION 2 MG/ML SYRG IV ONE (12:30)
[2021-04-20] MEDS: TAMSULOSIN HYDROCHLORIDE 0.4 MG CAP PO SCH (19:22)
[2021-04-20] MEDS: ATORVASTATIN 20 MG TAB PO SCH (22:04)
[2021-04-21] VITALS (56 sets, daily range): BP systolic 94–129; BP diastolic 44–61
[2021-04-21] MEDS: MEROPENEM 1GM IVPB 100 ML IV SCH ×4 (01:35→23:00)
[2021-04-21] MEDS: NOREPINEPHRINE 8 MG/250ML KIT 250 ML IV SCH (03:00)
[2021-04-21] MEDS: InsuLIN REG 1unit/0.01ml Soln (100units/ml) SC SCH ×3 (06:00→13:10)
[2021-04-21] MEDS: ALBUTEROL SULF 2.5 MG/0.5ML(0.5%) NEB SOLN NEB SCH ×4 (06:10→18:25)
[2021-04-21] MEDS: IPRATROPIUM BROM 0.5 MG/2.5ML INH SOL NEB SCH ×4 (06:10→18:25)
[2021-04-21] MEDS: GABAPENTIN 100 MG CAP PO SCH ×3 (06:23→22:00)
[2021-04-21] MEDS: ACCU-CHEK COMFORT CURVE STRIP VI SCH ×3 (06:23→15:17)
[2021-04-21] MEDS: PANTOPRAZOLE 40 MG/10 ML VIAL INJ IV SCH (09:54)
[2021-04-21] MEDS: SPIRONOLACTONE 25 MG TAB PO SCH (10:00)
[2021-04-21] MEDS: ACETYLCYSTEINE 10 %(100MG/ML) SOL 4ML NEB SCH ×2 (11:56→18:26)
[2021-04-21] MEDS ORDERED: ALBUMIN 25% 100 ML IV ONE (12:00)
[2021-04-21] MEDS: SODIUM CHLORIDE 0.9% 1,000 ML IV SCH (12:34)
[2021-04-21] MEDS: ATORVASTATIN 20 MG TAB PO SCH (22:00)
[2021-04-21] MEDS: ACETAMINOPHEN 500 MG TAB PO PRN (23:00)
[2021-04-22] VITALS (86 sets, daily range): BP systolic 72–133; BP diastolic 29–90
[2021-04-22] MEDS: SODIUM CHLORIDE 0.9% 1,000 ML IV SCH ×3 (00:39→12:00)
[2021-04-22] MEDS: NOREPINEPHRINE 8 MG/250ML KIT 250 ML IV SCH ×2 (01:10→03:00)
[2021-04-22] MEDS: ACCU-CHEK COMFORT CURVE STRIP VI SCH ×5 (06:00→23:56)
[2021-04-22] MEDS: InsuLIN REG 1unit/0.01ml Soln (100units/ml) SC SCH ×5 (06:00→23:56)
[2021-04-22] MEDS: IPRATROPIUM BROM 0.5 MG/2.5ML INH SOL NEB SCH ×3 (06:26→18:26)
[2021-04-22] MEDS: ACETYLCYSTEINE 10 %(100MG/ML) SOL 4ML NEB SCH ×3 (06:26→18:26)
[2021-04-22] MEDS: ALBUTEROL SULF 2.5 MG/0.5ML(0.5%) NEB SOLN NEB SCH ×3 (06:26→18:26)
[2021-04-22] MEDS: MEROPENEM 1GM IVPB 100 ML IV SCH ×3 (06:43→22:34)
[2021-04-22] MEDS: GABAPENTIN 100 MG CAP PO SCH ×3 (06:43→21:40)
[2021-04-22] MEDS: PANTOPRAZOLE 40 MG/10 ML VIAL INJ IV SCH (10:25)
[2021-04-22] MEDS: TAMSULOSIN HYDROCHLORIDE 0.4 MG CAP PO SCH ×2 (11:32→18:24)
[2021-04-22] MEDS: MIDODRINE HCL 10 MG TAB PO SCH ×2 (11:36→18:00)
[2021-04-22] MEDS ORDERED: [UNRECOGNIZED DRUG - OTHER] PO SCH (14:00)
[2021-04-22] MEDS: FLUCONAZOLE 100 MG TAB PO SCH (19:00)
[2021-04-22] MEDS: ATORVASTATIN 20 MG TAB PO SCH (21:40)
[2021-04-23] VITALS (94 sets, daily range): BP systolic 80–132; BP diastolic 27–87
[2021-04-23] MEDS: SODIUM CHLORIDE 0.9% 1,000 ML IV SCH (03:56)
[2021-04-23] MEDS: GABAPENTIN 100 MG CAP PO SCH ×3 (05:43→21:54)
[2021-04-23] MEDS: MIDODRINE HCL 10 MG TAB PO SCH ×3 (05:43→17:48)
[2021-04-23] MEDS: InsuLIN REG 1unit/0.01ml Soln (100units/ml) SC SCH ×3 (06:00→17:52)
[2021-04-23] MEDS: MEROPENEM 1GM IVPB 100 ML IV SCH (06:22)
[2021-04-23] MEDS: ACCU-CHEK COMFORT CURVE STRIP VI SCH ×3 (06:22→17:55)
[2021-04-23] MEDS: IPRATROPIUM BROM 0.5 MG/2.5ML INH SOL NEB SCH ×3 (06:41→18:06)
[2021-04-23] MEDS: ALBUTEROL SULF 2.5 MG/0.5ML(0.5%) NEB SOLN NEB SCH ×3 (06:41→18:06)
[2021-04-23] MEDS: ACETYLCYSTEINE 10 %(100MG/ML) SOL 4ML NEB SCH ×3 (06:41→18:06)
[2021-04-23] MEDS: FLUCONAZOLE 100 MG TAB PO SCH (10:19)
[2021-04-23] MEDS: PANTOPRAZOLE 40 MG/10 ML VIAL INJ IV SCH (10:19)
[2021-04-23] MEDS: ENOXAPARIN SOD 40 MG/0.4 ML SYRINGE SC SCH (10:20)
[2021-04-23] MEDS: NOREPINEPHRINE 8 MG/250ML KIT 250 ML IV SCH (14:28)
[2021-04-23] MEDS: HYDROCORTISONE SOD SUCC 100 MG/2ML INJ VIAL IV SCH ×2 (14:51→21:54)
[2021-04-23] MEDS: TAMSULOSIN HYDROCHLORIDE 0.4 MG CAP PO SCH (17:48)
[2021-04-23] MEDS: ATORVASTATIN 20 MG TAB PO SCH (21:54)
[2021-04-24] VITALS (32 sets, daily range): BP systolic 80–136; BP diastolic 46–72
[2021-04-24] MEDS: ALBUTEROL SULF 2.5 MG/0.5ML(0.5%) NEB SOLN NEB SCH ×3 (00:04→18:45)
[2021-04-24] MEDS: IPRATROPIUM BROM 0.5 MG/2.5ML INH SOL NEB SCH ×3 (00:04→18:45)
[2021-04-24] MEDS: ACCU-CHEK COMFORT CURVE STRIP VI SCH ×3 (00:39→12:05)
[2021-04-24] MEDS: InsuLIN REG 1unit/0.01ml Soln (100units/ml) SC SCH ×3 (00:41→12:06)
[2021-04-24] MEDS: NOREPINEPHRINE 8 MG/250ML KIT 250 ML IV SCH (03:00)
[2021-04-24 05:14] LABS: Basophils # (auto) 0 10 ^3/uL (0-0.2); Basophils % (auto) 0.2 % (0.0-2.0); Eosinophils # (auto) 0 10 ^3/uL (0-0.8); Eosinophils % (auto) 0.2 % (0.0-7.0); Hematocrit 37.4 % (41.0-53.0); Hemoglobin 12.4 g/dL (13.5-17.5); Lymphocytes # (auto) 0.9 10 ^3/uL (0.4-5.4); Lymphocytes % (auto) 21.3 % (10.0-50.0); Mean Corpuscular Hemoglobin 29.2 pg (28.0-32.0); Mean Corpuscular Hgb Conc. 33.1 g/dL (32.0-36.0); Mean Corpuscular Volume 88.4 fL (80.0-100.0); Monocytes # (auto) 0.2 10 ^3/uL (0-1.3); Monocytes % (auto) 3.8 % (0.0-12.0); Neutrophils # (auto) 3.2 10 ^3/uL (1.6-8.6); Neutrophils % (auto) 74.5 % (37.0-80.0); Nucleated Red Blood Cells % 0.2 %; Red Blood Cells 4.23 10^6/uL (4.5-5.90); Red Cell Distribution Width 17.2 % (11.8-14.3); White Blood Cell 4.3 10^3/uL (4.4-10.8)
[2021-04-24 05:32] LABS: Albumin 1.6 g/dL (3.4-5.0); BUN/Creatinine Ratio 10.7; Calcium 8.3 mg/dL (8.5-10.1)
[2021-04-24 05:34] LABS: Bilirubin, Total 0.5 mg/dL (0.2-1.0); Total Protein 5.7 g/dL (6.4-8.2)
[2021-04-24] MEDS: MIDODRINE HCL 10 MG TAB PO SCH ×3 (06:03→18:18)
[2021-04-24] MEDS: GABAPENTIN 100 MG CAP PO SCH ×3 (06:03→21:16)
[2021-04-24] MEDS: HYDROCORTISONE SOD SUCC 100 MG/2ML INJ VIAL IV SCH ×3 (06:05→21:16)
[2021-04-24] MEDS: ACETYLCYSTEINE 10 %(100MG/ML) SOL 4ML NEB SCH ×3 (06:36→18:45)
[2021-04-24] MEDS: PANTOPRAZOLE 40 MG/10 ML VIAL INJ IV SCH (08:27)
[2021-04-24] MEDS: ENOXAPARIN SOD 40 MG/0.4 ML SYRINGE SC SCH (08:27)
[2021-04-24] MEDS: FLUCONAZOLE 100 MG TAB PO SCH (10:00)
[2021-04-24] MEDS: TAMSULOSIN HYDROCHLORIDE 0.4 MG CAP PO SCH (18:18)
[2021-04-24] MEDS: ATORVASTATIN 20 MG TAB PO SCH (21:16)
[2021-04-25 05:00] VITALS: BP 134/76
[2021-04-25] MEDS: ALBUTEROL SULF 2.5 MG/0.5ML(0.5%) NEB SOLN NEB SCH ×3 (06:23→18:49)
[2021-04-25] MEDS: IPRATROPIUM BROM 0.5 MG/2.5ML INH SOL NEB SCH ×3 (06:23→18:49)
[2021-04-25] MEDS: ACETYLCYSTEINE 10 %(100MG/ML) SOL 4ML NEB SCH ×3 (06:24→18:00)
[2021-04-25] MEDS: HYDROCORTISONE SOD SUCC 100 MG/2ML INJ VIAL IV SCH ×3 (07:07→22:06)
[2021-04-25] MEDS: GABAPENTIN 100 MG CAP PO SCH ×3 (07:07→22:07)
[2021-04-25] MEDS: MIDODRINE HCL 10 MG TAB PO SCH ×3 (07:07→17:43)
[2021-04-25 09:00] VITALS: BP 109/48
[2021-04-25] MEDS: ENOXAPARIN SOD 40 MG/0.4 ML SYRINGE SC SCH (09:45)
[2021-04-25] MEDS: FLUCONAZOLE 100 MG TAB PO SCH (09:45)
[2021-04-25 13:00] VITALS: BP 124/62
[2021-04-25 17:00] VITALS: BP 126/65
[2021-04-25 17:47] VITALS: BP 124/62
[2021-04-25 22:00] VITALS: BP 140/73
[2021-04-26 05:00] VITALS: BP 151/78
[2021-04-26] MEDS: ALBUTEROL SULF 2.5 MG/0.5ML(0.5%) NEB SOLN NEB SCH ×3 (06:49→18:58)
[2021-04-26] MEDS: IPRATROPIUM BROM 0.5 MG/2.5ML INH SOL NEB SCH ×3 (06:49→18:58)
[2021-04-26] MEDS: ACETYLCYSTEINE 10 %(100MG/ML) SOL 4ML NEB SCH ×3 (06:50→18:58)
[2021-04-26] MEDS: GABAPENTIN 100 MG CAP PO SCH ×3 (06:56→22:48)
[2021-04-26] MEDS: HYDROCORTISONE SOD SUCC 100 MG/2ML INJ VIAL IV SCH ×3 (06:56→22:48)
[2021-04-26] MEDS: MIDODRINE HCL 10 MG TAB PO SCH (06:56)
[2021-04-26 10:45] VITALS: BP 133/65
[2021-04-26] MEDS: ENOXAPARIN SOD 40 MG/0.4 ML SYRINGE SC SCH (10:59)
[2021-04-26] MEDS: FLUCONAZOLE 100 MG TAB PO SCH (10:59)
[2021-04-26] MEDS ORDERED: ALBUTEROL SULF 2.5 MG/0.5ML(0.5%) NEB SOLN ONE (12:05)
[2021-04-26] MEDS ORDERED: IPRATROPIUM BROM 0.5 MG/2.5ML INH SOL ONE (12:05)
[2021-04-26 13:00] VITALS: BP 132/69
[2021-04-26 18:02] VITALS: BP 145/72
[2021-04-26 22:00] VITALS: BP 141/70
[2021-04-27 05:00] VITALS: BP 126/59
[2021-04-27] MEDS: GABAPENTIN 100 MG CAP PO SCH ×3 (05:53→21:19)
[2021-04-27] MEDS: HYDROCORTISONE SOD SUCC 100 MG/2ML INJ VIAL IV SCH ×3 (05:53→21:19)
[2021-04-27] MEDS: IPRATROPIUM BROM 0.5 MG/2.5ML INH SOL NEB SCH ×3 (07:26→19:17)
[2021-04-27] MEDS: ACETYLCYSTEINE 10 %(100MG/ML) SOL 4ML NEB SCH ×3 (07:26→19:17)
[2021-04-27] MEDS: ALBUTEROL SULF 2.5 MG/0.5ML(0.5%) NEB SOLN NEB SCH ×3 (07:26→19:17)
[2021-04-27 09:00] VITALS: BP 131/65
[2021-04-27] MEDS: FLUCONAZOLE 100 MG TAB PO SCH (09:38)
[2021-04-27] MEDS: ENOXAPARIN SOD 40 MG/0.4 ML SYRINGE SC SCH (09:38)
[2021-04-27 13:00] VITALS: BP 143/74
[2021-04-27 17:00] VITALS: BP 144/69
[2021-04-27] MEDS: ACETAMINOPHEN 500 MG TAB PO PRN (21:19)
[2021-04-27] MEDS: ONDANSETRON HCL 4 MG/2 ML VIAL IV PRN (21:40)
[2021-04-27 22:00] VITALS: BP 146/67
[2021-04-28 05:00] VITALS: BP 134/74
[2021-04-28] MEDS: HYDROCORTISONE SOD SUCC 100 MG/2ML INJ VIAL IV SCH ×3 (05:11→21:36)
[2021-04-28] MEDS: GABAPENTIN 100 MG CAP PO SCH ×3 (05:12→21:36)
[2021-04-28] MEDS: ONDANSETRON HCL 4 MG/2 ML VIAL IV PRN (05:12)
[2021-04-28] MEDS ORDERED: PROMETHAZINE HCL 25 MG/ML 1ML IV ONE (06:45)
[2021-04-28] MEDS: ALBUTEROL SULF 2.5 MG/0.5ML(0.5%) NEB SOLN NEB SCH ×3 (06:51→19:39)
[2021-04-28] MEDS: IPRATROPIUM BROM 0.5 MG/2.5ML INH SOL NEB SCH ×3 (06:51→19:39)
[2021-04-28] MEDS: ACETYLCYSTEINE 10 %(100MG/ML) SOL 4ML NEB SCH ×3 (07:36→19:39)
[2021-04-28 09:00] VITALS: BP 152/78
[2021-04-28] MEDS: FLUCONAZOLE 100 MG TAB PO SCH (10:04)
[2021-04-28] MEDS: ENOXAPARIN SOD 40 MG/0.4 ML SYRINGE SC SCH (10:04)
[2021-04-28 13:00] VITALS: BP 150/75
[2021-04-28 17:00] VITALS: BP 148/85
[2021-04-28] MEDS: ACETAMINOPHEN 500 MG TAB PO PRN (21:36)
[2021-04-28 22:24] VITALS: BP 134/69
[2021-04-29 05:12] VITALS: BP 159/81
[2021-04-29] MEDS: HYDROCORTISONE SOD SUCC 100 MG/2ML INJ VIAL IV SCH ×3 (06:11→21:09)
[2021-04-29] MEDS: GABAPENTIN 100 MG CAP PO SCH ×3 (06:11→21:09)
[2021-04-29] MEDS: ALBUTEROL SULF 2.5 MG/0.5ML(0.5%) NEB SOLN NEB SCH ×3 (06:21→19:17)
[2021-04-29] MEDS: ACETYLCYSTEINE 10 %(100MG/ML) SOL 4ML NEB SCH ×3 (06:21→18:00)
[2021-04-29] MEDS: IPRATROPIUM BROM 0.5 MG/2.5ML INH SOL NEB SCH ×3 (06:21→19:17)
[2021-04-29] MEDS: ENOXAPARIN SOD 40 MG/0.4 ML SYRINGE SC SCH (08:11)
[2021-04-29] MEDS: FLUCONAZOLE 100 MG TAB PO SCH (08:11)
[2021-04-29 09:00] VITALS: BP 156/73
[2021-04-29 13:00] VITALS: BP 144/77
[2021-04-29 17:00] VITALS: BP 141/78
[2021-04-29] MEDS: ACETAMINOPHEN 500 MG TAB PO PRN (21:09)
[2021-04-29 22:00] VITALS: BP 135/65
[2021-04-30] VITALS (7 sets, daily range): BP systolic 134–158; BP diastolic 57–88
[2021-04-30] MEDS: GABAPENTIN 100 MG CAP PO SCH ×2 (05:15→14:12)
[2021-04-30] MEDS: HYDROCORTISONE SOD SUCC 100 MG/2ML INJ VIAL IV SCH ×2 (05:15→14:12)
[2021-04-30] MEDS: IPRATROPIUM BROM 0.5 MG/2.5ML INH SOL NEB SCH ×3 (05:50→19:42)
[2021-04-30] MEDS: ACETYLCYSTEINE 10 %(100MG/ML) SOL 4ML NEB SCH ×3 (05:50→19:42)
[2021-04-30] MEDS: ALBUTEROL SULF 2.5 MG/0.5ML(0.5%) NEB SOLN NEB SCH ×3 (05:50→19:42)
[2021-04-30] MEDS: ENOXAPARIN SOD 40 MG/0.4 ML SYRINGE SC SCH (12:41)
== END 2021-04-30 20:45 | disposition home or self-care (01) | DRG 871 ==
LOC: EDBD 02:51 → ER 02:51 → OVERFLOW 07:05 → WEST WING 19:50 → TELE-WESTW 03-27 01:01 → DOU IN ICU 04-06 23:25 → TELE-WESTW 04-08 20:10 → DOU IN ICU 04-15 12:35 → TELE-CENTR 04-24 11:25
PROVIDERS: ADMIT Nurse Practitioner; ATTEND Family Medicine
PROC: 5A09357 Assistance with Respiratory Ventilation, Less than 24 Consecutive Hours, Continuous Positive Airway Pressure (ICD-10-PCS; 2021-03-26)
PROC: 5A09357 Assistance with Respiratory Ventilation, Less than 24 Consecutive Hours, Continuous Positive Airway Pressure (ICD-10-PCS; 2021-03-27)
PROC: 5A09357 Assistance with Respiratory Ventilation, Less than 24 Consecutive Hours, Continuous Positive Airway Pressure (ICD-10-PCS; 2021-03-28)
PROC: 5A09357 Assistance with Respiratory Ventilation, Less than 24 Consecutive Hours, Continuous Positive Airway Pressure (ICD-10-PCS; 2021-03-29)
PROC: 5A09357 Assistance with Respiratory Ventilation, Less than 24 Consecutive Hours, Continuous Positive Airway Pressure (ICD-10-PCS; 2021-03-30)
PROC: 5A09357 Assistance with Respiratory Ventilation, Less than 24 Consecutive Hours, Continuous Positive Airway Pressure (ICD-10-PCS; 2021-03-31)
PROC: 5A09357 Assistance with Respiratory Ventilation, Less than 24 Consecutive Hours, Continuous Positive Airway Pressure (ICD-10-PCS; 2021-04-01)
PROC: 5A09357 Assistance with Respiratory Ventilation, Less than 24 Consecutive Hours, Continuous Positive Airway Pressure (ICD-10-PCS; 2021-04-02)
PROC: 5A09357 Assistance with Respiratory Ventilation, Less than 24 Consecutive Hours, Continuous Positive Airway Pressure (ICD-10-PCS; 2021-04-03)
PROC: 5A09357 Assistance with Respiratory Ventilation, Less than 24 Consecutive Hours, Continuous Positive Airway Pressure (ICD-10-PCS; 2021-04-04)
PROC: 5A09357 Assistance with Respiratory Ventilation, Less than 24 Consecutive Hours, Continuous Positive Airway Pressure (ICD-10-PCS; 2021-04-05)
PROC: 5A09357 Assistance with Respiratory Ventilation, Less than 24 Consecutive Hours, Continuous Positive Airway Pressure (ICD-10-PCS; 2021-04-06)
PROC: 5A09357 Assistance with Respiratory Ventilation, Less than 24 Consecutive Hours, Continuous Positive Airway Pressure (ICD-10-PCS; 2021-04-07)
PROC: 5A09357 Assistance with Respiratory Ventilation, Less than 24 Consecutive Hours, Continuous Positive Airway Pressure (ICD-10-PCS; 2021-04-08)
PROC: 0B9K8ZZ Drainage of Right Lung, Via Natural or Artificial Opening Endoscopic (ICD-10-PCS; principal; 2021-04-08 13:15)
PROC: 5A09357 Assistance with Respiratory Ventilation, Less than 24 Consecutive Hours, Continuous Positive Airway Pressure (ICD-10-PCS; 2021-04-09)
PROC: 5A09357 Assistance with Respiratory Ventilation, Less than 24 Consecutive Hours, Continuous Positive Airway Pressure (ICD-10-PCS; 2021-04-10)
PROC: 5A09357 Assistance with Respiratory Ventilation, Less than 24 Consecutive Hours, Continuous Positive Airway Pressure (ICD-10-PCS; 2021-04-14)
PROC: 05HF33Z Insertion of Infusion Device into Left Cephalic Vein, Percutaneous Approach (ICD-10-PCS; 2021-04-15)
PROC: B54NZZA Ultrasonography of Left Upper Extremity Veins, Guidance (ICD-10-PCS; 2021-04-15)
PROC: 5A09357 Assistance with Respiratory Ventilation, Less than 24 Consecutive Hours, Continuous Positive Airway Pressure (ICD-10-PCS; 2021-04-15)
PROC: 5A09357 Assistance with Respiratory Ventilation, Less than 24 Consecutive Hours, Continuous Positive Airway Pressure (ICD-10-PCS; 2021-04-16)
PROC: 5A09357 Assistance with Respiratory Ventilation, Less than 24 Consecutive Hours, Continuous Positive Airway Pressure (ICD-10-PCS; 2021-04-17)
PROC: 0W9F3ZZ Drainage of Abdominal Wall, Percutaneous Approach (ICD-10-PCS; 2021-04-18)
PROC: 5A09357 Assistance with Respiratory Ventilation, Less than 24 Consecutive Hours, Continuous Positive Airway Pressure (ICD-10-PCS; 2021-04-18)
PROC: 5A09357 Assistance with Respiratory Ventilation, Less than 24 Consecutive Hours, Continuous Positive Airway Pressure (ICD-10-PCS; 2021-04-19)
PROC: 5A09357 Assistance with Respiratory Ventilation, Less than 24 Consecutive Hours, Continuous Positive Airway Pressure (ICD-10-PCS; 2021-04-20)
PROC: 5A09357 Assistance with Respiratory Ventilation, Less than 24 Consecutive Hours, Continuous Positive Airway Pressure (ICD-10-PCS; 2021-04-21)
PROC: 5A09357 Assistance with Respiratory Ventilation, Less than 24 Consecutive Hours, Continuous Positive Airway Pressure (ICD-10-PCS; 2021-04-22)
PROC: 5A09357 Assistance with Respiratory Ventilation, Less than 24 Consecutive Hours, Continuous Positive Airway Pressure (ICD-10-PCS; 2021-04-24)
PROC: 5A09357 Assistance with Respiratory Ventilation, Less than 24 Consecutive Hours, Continuous Positive Airway Pressure (ICD-10-PCS; 2021-04-25)
PROC: 5A09357 Assistance with Respiratory Ventilation, Less than 24 Consecutive Hours, Continuous Positive Airway Pressure (ICD-10-PCS; 2021-04-26)
PROC: 5A09357 Assistance with Respiratory Ventilation, Less than 24 Consecutive Hours, Continuous Positive Airway Pressure (ICD-10-PCS; 2021-04-27)
PROC: 5A09357 Assistance with Respiratory Ventilation, Less than 24 Consecutive Hours, Continuous Positive Airway Pressure (ICD-10-PCS; 2021-04-28)
PROC: 5A09357 Assistance with Respiratory Ventilation, Less than 24 Consecutive Hours, Continuous Positive Airway Pressure (ICD-10-PCS; 2021-04-29)
PROC: 5A09357 Assistance with Respiratory Ventilation, Less than 24 Consecutive Hours, Continuous Positive Airway Pressure (ICD-10-PCS; 2021-04-30)
DX: A41.9 Sepsis, unspecified organism (principal); I50.23 Acute on chronic systolic (congestive) heart failure; J96.01 Acute respiratory failure with hypoxia; R65.21 Severe sepsis with septic shock; K65.1 Peritoneal abscess; K81.0 Acute cholecystitis; J44.1 Chronic obstructive pulmonary disease with (acute) exacerbation; J98.11 Atelectasis; D68.9 Coagulation defect, unspecified; Z20.822 Contact with and (suspected) exposure to COVID-19; E11.21 Type 2 diabetes mellitus with diabetic nephropathy; E11.40 Type 2 diabetes mellitus with diabetic neuropathy, unspecified; I25.10 Atherosclerotic heart disease of native coronary artery without angina pectoris; I48.0 Paroxysmal atrial fibrillation; E66.9 Obesity, unspecified; I80.8 Phlebitis and thrombophlebitis of other sites; N40.0 Benign prostatic hyperplasia without lower urinary tract symptoms; E78.5 Hyperlipidemia, unspecified; I11.0 Hypertensive heart disease with heart failure; E78.00 Pure hypercholesterolemia, unspecified; F17.210 Nicotine dependence, cigarettes, uncomplicated; F20.9 Schizophrenia, unspecified; I25.2 Old myocardial infarction; Z86.73 Personal history of transient ischemic attack (TIA), and cerebral infarction without residual deficits; Z79.899 Other long term (current) drug therapy; Z86.79 Personal history of other diseases of the circulatory system; Z95.1 Presence of aortocoronary bypass graft; Z95.810 Presence of automatic (implantable) cardiac defibrillator; Z88.8 Allergy status to other drugs, medicaments and biological substances
CPT/HCPCS: 31622; 36415; 36600; 71045; 71250; 71260; 71275; 74176; 74177; 76604; 78226; 80048; 80053; 80061; 80202; 81001; 82150; 82565; 82805; 82962; 83036; 83605; 83690; 83735; 83880; 83986; 84443; 84484; 85007; 85025; 85027; 85379; 85610; 85730; 86850; 86900; 86901; 87040; 87070; 87077; 87081; 87086; 87088; 87205; 87426; 87493; 89051; 93005; 93306; 93970; 93971; 94003; 94640; 94660; 96365; 96366; 96367; 96368; 96375; 97110; 97116; 97530; C9113; G0378; J0330; J0690; J0696; J1815; J2001; J2185; J2250; J2405; J2543; J2704; J3430; J3490; J7060; P9047

== ENCOUNTER 2021-05-02 19:57 | Emergency (ER) | payer OTHER ==
[~2021-05-02] VITALS: Ht 1 cm; Wt 0.5 kg
[~2021-05-02 19:57] MED LIST changes: -AML5T PO; +ARIP10TA29 PO; -ASPI81CH43 PO; -BACL10TA PO; +CLOP75TA70 PO; +DIGO0.12 PO; -LISI20TA28 PO; +MIRT-66 PO; -PERCOT PO; +POTA10TA51 PO; +RIVA20TA PO; +SERT50TA19 PO; -SPIR25TA8 PO
[2021-05-02] MEDS ORDERED: EPINEPHrine HCL 1 MG/10 ML SYRG IV ONE (20:02)
[2021-05-02] MEDS ORDERED: SODIUM BICARBONATE 8.4 % INJ 50ML VIAL IV ONE (20:02)
== END 2021-05-02 20:02 ==
LOC: EDBD 19:57 → ER 20:01
DX: I46.9 Cardiac arrest, cause unspecified (principal); J44.9 Chronic obstructive pulmonary disease, unspecified; I10 Essential (primary) hypertension; I25.2 Old myocardial infarction; I25.10 Atherosclerotic heart disease of native coronary artery without angina pectoris; E11.9 Type 2 diabetes mellitus without complications; E78.5 Hyperlipidemia, unspecified; F17.210 Nicotine dependence, cigarettes, uncomplicated; Z95.1 Presence of aortocoronary bypass graft; Z95.0 Presence of cardiac pacemaker; Z79.899 Other long term (current) drug therapy; Z88.8 Allergy status to other drugs, medicaments and biological substances
CPT/HCPCS: 92950; 99285; J0171